=== PATIENT | female | born 1940 | race Caucasian/White ===

== ENCOUNTER → 2022-02-21 | Outpatient (REF) | payer MEDICARE, OTHER ==
[2022-02-21 17:16] LABS: ALT/SGPT 19 U/L (12-78); CHOLESTEROL LEVEL 185 MG/DL (<200); CHOLESTEROL RISK RATIO 3.854 (<5); HDL CHOLESTEROL 48 MG/DL (>40); NON-HDL-C 137 MG/DL; TRIGLYCERIDES LEVEL 436 MG/DL (<150)
== END ==
LOC: M LAB REF 15:04 → M SHH 15:04
PROVIDERS: ATTEND Nurse Practitioner Family
DX: I73.9 Peripheral vascular disease, unspecified (principal); I10 Essential (primary) hypertension; E78.5 Hyperlipidemia, unspecified

== ENCOUNTER → 2022-02-21 | Outpatient (REF) | payer MEDICARE, OTHER ==
[2022-02-21 16:18] LABS: BASO # 0.1 10^3/uL (0.0-0.2); BASO % 1.1 % (0.0-1.0); EOS # 0.2 10^3/uL (0.0-0.5); HEMATOCRIT 38.3 % (36.0-47.0); HEMOGLOBIN 11.7 g/dl (12.0-15.5); LYMPH # 1.5 10^3/uL (1.5-5.0); LYMPH % 15.3 % (24.0-44.0); MEAN CORPUSCULAR HEMOGLOBIN 27.9 pg (27.0-33.0); MEAN CORPUSCULAR HGB CONC 30.5 g/dl (32.0-36.5); MEAN CORPUSCULAR VOLUME 91.2 fl (80.0-96.0); MONO # 1.1 10^3/uL (0.0-0.8); MONO % 10.6 % (2.0-8.0); PLATELET COUNT, AUTOMATED 334 10^3/uL (150-450); WHITE BLOOD COUNT 9.9 10^3/uL (4.0-10.0)
[2022-02-21 17:12] LABS: BLOOD UREA NITROGEN 25 MG/DL (7-18); CALCIUM LEVEL 9.6 MG/DL (8.8-10.2); CARBON DIOXIDE LEVEL 27 MEQ/L (21-32); CHLORIDE LEVEL 103 MEQ/L (98-107); CREATININE FOR GFR 0.85 MG/DL (0.55-1.30); GLOMERULAR FILTRATION RATE > 60.0 (>39); GLUCOSE, FASTING 223 MG/DL (70-100); POTASSIUM SERUM 4.2 MEQ/L (3.5-5.1); SODIUM LEVEL 141 MEQ/L (136-145)
[2022-02-21 17:16] LABS: ALBUMIN 3.1 GM/DL (3.2-5.2); ALT/SGPT 20 U/L (12-78); BILIRUBIN,DIRECT 0.1 MG/DL (0.0-0.2); BILIRUBIN,TOTAL 0.2 MG/DL (0.2-1.0); C REACTIVE PROTEIN QUANTITATIV < 0.30 MG/DL (0.00-0.30); TOTAL PROTEIN 6.1 GM/DL (6.4-8.2)
== END ==
LOC: M SHH 15:12
DX: L08.9 Local infection of the skin and subcutaneous tissue, unspecified (principal)

== ENCOUNTER → 2022-02-28 | Outpatient (REF) | payer MEDICARE ==
[2022-02-28 16:01] LABS: BASO # 0.1 10^3/uL (0.0-0.2); BASO % 1.3 % (0.0-1.0); EOS # 0.3 10^3/uL (0.0-0.5); EOS % 2.4 % (0.0-3.0); HEMATOCRIT 38.7 % (36.0-47.0); HEMOGLOBIN 12.2 g/dl (12.0-15.5); LYMPH # 1.7 10^3/uL (1.5-5.0); LYMPH % 16.7 % (24.0-44.0); MEAN CORPUSCULAR HEMOGLOBIN 28.8 pg (27.0-33.0); MEAN CORPUSCULAR HGB CONC 31.5 g/dl (32.0-36.5); MEAN CORPUSCULAR VOLUME 91.3 fl (80.0-96.0); MONO # 1.2 10^3/uL (0.0-0.8); MONO % 11.2 % (2.0-8.0); NEUTROPHILS % 67.8 % (36.0-66.0); PLATELET COUNT, AUTOMATED 319 10^3/uL (150-450); RED BLOOD COUNT 4.24 10^6/uL (4.00-5.40); WHITE BLOOD COUNT 10.3 10^3/uL (4.0-10.0)
[2022-02-28 16:15] LABS: ALBUMIN 3.4 GM/DL (3.2-5.2); ALT/SGPT 16 U/L (12-78); BILIRUBIN,DIRECT < 0.1 MG/DL (0.0-0.2); BILIRUBIN,TOTAL < 0.1 MG/DL (0.2-1.0); BLOOD UREA NITROGEN 23 MG/DL (7-18); CALCIUM LEVEL 9.2 MG/DL (8.8-10.2); CARBON DIOXIDE LEVEL 31 MEQ/L (21-32); CHLORIDE LEVEL 104 MEQ/L (98-107); CREATININE FOR GFR 0.68 MG/DL (0.55-1.30); GLOMERULAR FILTRATION RATE > 60.0 (>39); GLUCOSE, FASTING 47 MG/DL (70-100); POTASSIUM SERUM 4.1 MEQ/L (3.5-5.1); SODIUM LEVEL 142 MEQ/L (136-145); TOTAL PROTEIN 6.4 GM/DL (6.4-8.2)
[2022-02-28 16:37] LABS: ERYTHROCYTE SEDIMENTATION RATE 6 mm/hr (0-30)
== END ==
LOC: M SHH 14:46
DX: L08.9 Local infection of the skin and subcutaneous tissue, unspecified (principal)

== ENCOUNTER → 2022-03-09 | Outpatient (REF) | payer MEDICARE ==
[2022-03-09 16:02] LABS: BASO # 0.1 10^3/uL (0.0-0.2); BASO % 0.7 % (0.0-1.0); EOS # 0.2 10^3/uL (0.0-0.5); EOS % 1.3 % (0.0-3.0); HEMATOCRIT 37.5 % (36.0-47.0); HEMOGLOBIN 11.7 g/dl (12.0-15.5); LYMPH # 0.7 10^3/uL (1.5-5.0); MEAN CORPUSCULAR HEMOGLOBIN 28.4 pg (27.0-33.0); MEAN CORPUSCULAR HGB CONC 31.2 g/dl (32.0-36.5); MONO % 13.3 % (2.0-8.0); NEUTROPHILS # 9.2 10^3/uL (1.5-8.5); NEUTROPHILS % 77.9 % (36.0-66.0); PLATELET COUNT, AUTOMATED 348 10^3/uL (150-450); RED BLOOD COUNT 4.12 10^6/uL (4.00-5.40); WHITE BLOOD COUNT 11.9 10^3/uL (4.0-10.0)
[2022-03-09 16:30] LABS: ALBUMIN 3.4 GM/DL (3.2-5.2); ALT/SGPT 15 U/L (12-78); BILIRUBIN,DIRECT < 0.1 MG/DL (0.0-0.2); BILIRUBIN,TOTAL 0.1 MG/DL (0.2-1.0); BLOOD UREA NITROGEN 42 MG/DL (7-18); CALCIUM LEVEL 9.9 MG/DL (8.8-10.2); CARBON DIOXIDE LEVEL 31 MEQ/L (21-32); CHLORIDE LEVEL 100 MEQ/L (98-107); CREATININE FOR GFR 0.76 MG/DL (0.55-1.30); GLOMERULAR FILTRATION RATE > 60.0 (>39); GLUCOSE, FASTING 152 MG/DL (70-100); POTASSIUM SERUM 4.3 MEQ/L (3.5-5.1); SODIUM LEVEL 139 MEQ/L (136-145); TOTAL PROTEIN 6.3 GM/DL (6.4-8.2)
[2022-03-09 17:33] LABS: ERYTHROCYTE SEDIMENTATION RATE 2 mm/hr (0-30)
[2022-03-09 19:32] LABS: MONO # 1.6 10^3/uL (0.0-0.8)
== END ==
LOC: M SHH 15:00
DX: L08.9 Local infection of the skin and subcutaneous tissue, unspecified (principal)

== ENCOUNTER → 2022-03-14 | Outpatient (REF) | payer MEDICARE ==
[2022-03-14 14:21] LABS: BASO % 0.1 % (0.0-1.0); EOS % 0.1 % (0.0-3.0); HEMATOCRIT 38.7 % (36.0-47.0); HEMOGLOBIN 11.9 g/dl (12.0-15.5); LYMPH # 0.5 10^3/uL (1.5-5.0); MEAN CORPUSCULAR HEMOGLOBIN 27.9 pg (27.0-33.0); MEAN CORPUSCULAR HGB CONC 30.7 g/dl (32.0-36.5); MEAN CORPUSCULAR VOLUME 90.8 fl (80.0-96.0); MONO # 0.9 10^3/uL (0.0-0.8); MONO % 5.6 % (2.0-8.0); NEUTROPHILS # 14.2 10^3/uL (1.5-8.5); NEUTROPHILS % 90.7 % (36.0-66.0); PLATELET COUNT, AUTOMATED 291 10^3/uL (150-450); RED BLOOD COUNT 4.26 10^6/uL (4.00-5.40); WHITE BLOOD COUNT 15.7 10^3/uL (4.0-10.0)
[2022-03-14 14:40] LABS: ERYTHROCYTE SEDIMENTATION RATE 1 mm/hr (0-30)
[2022-03-14 14:44] LABS: ALBUMIN 3.2 GM/DL (3.2-5.2); ALT/SGPT 21 U/L (12-78); BILIRUBIN,DIRECT < 0.1 MG/DL (0.0-0.2); BILIRUBIN,TOTAL 0.5 MG/DL (0.2-1.0); C REACTIVE PROTEIN QUANTITATIV 0.93 MG/DL (0.00-0.30); TOTAL PROTEIN 6.4 GM/DL (6.4-8.2)
== END ==
LOC: M SHH 14:05
DX: L08.9 Local infection of the skin and subcutaneous tissue, unspecified (principal)

== ENCOUNTER → 2022-03-14 | Outpatient (REF) | payer MEDICARE ==
[2022-03-14 14:40] LABS: ALBUMIN 3.2 GM/DL (3.2-5.2); BILIRUBIN,TOTAL 0.1 MG/DL (0.2-1.0); CALCIUM LEVEL 10.1 MG/DL (8.8-10.2); CHOLESTEROL RISK RATIO 2.296 (<5); CREATININE FOR GFR 0.97 MG/DL (0.55-1.30); POTASSIUM SERUM 4.4 MEQ/L (3.5-5.1); TOTAL PROTEIN 6.4 GM/DL (6.4-8.2)
[2022-03-15 00:50] LABS: HEMOGLOBIN A1c 7.8 %
== END ==
LOC: M SHH 13:53
PROVIDERS: ATTEND Family Medicine
DX: E78.2 Mixed hyperlipidemia (principal); I10 Essential (primary) hypertension; E11.65 Type 2 diabetes mellitus with hyperglycemia

== ENCOUNTER 2022-03-25 12:14 | Observation (INO) | payer MEDICARE ==
[~2022-03-25] VITALS: Ht 162.6 cm; Wt 62.1 kg
[2022-03-25] MEDS ORDERED: OMEG1CAP85 PO (12:53)
[2022-03-25] MEDS ORDERED: LISI5TAB11 PO (12:53)
[2022-03-25] MEDS ORDERED: CLOP75TA2 PO (12:53)
[2022-03-25] MEDS ORDERED: HUMA50IN4 SQ (12:53)
[2022-03-25] MEDS ORDERED: LEVA0.6322 (12:53)
[2022-03-25] MEDS ORDERED: IPRA0.00 INH (12:53)
[2022-03-25] MEDS ORDERED: REPA140I2 SQ (12:53)
[2022-03-25] MEDS ORDERED: dexameTHASONE 20MG/5ML VIAL (J1100 PER 1MG) IV ONE (12:55)
[2022-03-25] MEDS ORDERED: IPRATROPIUM 0.5MG/ALBUTEROL 2.5MG INH SOL UD 3ML (DUONEB) NEB ONE (12:55)
[2022-03-25] MEDS ORDERED: ALBUTEROL SULFATE 2.5 MG/0.5 ML INH NEB SOLN INH ONE (12:55)
[2022-03-25 14:11] LABS: VENOUS BASE EXCESS 2.2 (-2.0-2.0); VENOUS HCO3 27.6 MEQ/L (23.0-27.0); VENOUS O2 SATURATION 72.1 % (60.0-80.0); VENOUS PARTIAL PRESSURE CO2 45.2 mmHg (38.0-50.0); VENOUS PARTIAL PRESSURE O2 37.7 mmHg (30.0-50.0); VENOUS PH 7.403 UNITS (7.330-7.430); VENOUS STANDARD HCO3 25.8 MEQ/L; VENOUS TOTAL CO2 28.9 MEQ/L (24.0-28.0)
[2022-03-25 14:15] LABS: BASO # 0.1 10^3/uL (0.0-0.2); BASO % 0.4 % (0.0-1.0); EOS % 0.2 % (0.0-3.0); HEMATOCRIT 44.2 % (36.0-47.0); HEMOGLOBIN 14.3 g/dl (12.0-15.5); LYMPH # 0.7 10^3/uL (1.5-5.0); LYMPH % 3.5 % (24.0-44.0); MEAN CORPUSCULAR HEMOGLOBIN 28.8 pg (27.0-33.0); MEAN CORPUSCULAR HGB CONC 32.4 g/dl (32.0-36.5); MEAN CORPUSCULAR VOLUME 89.1 fl (80.0-96.0); MONO # 1.5 10^3/uL (0.0-0.8); MONO % 8.1 % (2.0-8.0); NEUTROPHILS # 16.1 10^3/uL (1.5-8.5); NEUTROPHILS % 86.3 % (36.0-66.0); PLATELET COUNT, AUTOMATED 295 10^3/uL (150-450); RED BLOOD COUNT 4.96 10^6/uL (4.00-5.40); WHITE BLOOD COUNT 18.7 10^3/uL (4.0-10.0)
[2022-03-25 14:26] LABS: CK-MB VALUE MASS 1.4 NG/ML (<3.6); MB/CK RELATIVE INDEX 0.51 (< OR =4)
[2022-03-25 15:06] LABS: ALBUMIN 3.2 GM/DL (3.2-5.2); BILIRUBIN,DIRECT 0.2 MG/DL (0.0-0.2); BILIRUBIN,TOTAL 0.3 MG/DL (0.2-1.0); CALCIUM LEVEL 9.4 MG/DL (8.8-10.2); CREATININE FOR GFR 1.02 MG/DL (0.55-1.30); GLOMERULAR FILTRATION RATE 55.7 (>39); POTASSIUM SERUM 4.2 MEQ/L (3.5-5.1); THYROID STIMULATING HORMONE 1.02 uIU/ML (0.358-3.740); TOTAL PROTEIN 6.6 GM/DL (6.4-8.2)
[2022-03-25] MEDS ORDERED: ISOVUE-370 76% 100ML VIAL As Ordered ONE (15:11)
[2022-03-25 16:28] LABS: INR 0.99; PROTHROMBIN TIME 13.5 SECONDS (12.7-14.5)
[2022-03-25] MEDS ORDERED: ENOXAPARIN 60MG/0.6ML SYRINGE (J1650 PER 10MG) SC SCH ×2 (16:40→18:20)
[2022-03-25] MEDS ORDERED: MOM 30ML SUSPENSION UDC PO PRN (16:40)
[2022-03-25] MEDS ORDERED: ACETAMINOPHEN TAB 650MG DOSE (2X325MG) PO PRN (16:40)
[2022-03-25] MEDS ORDERED: DEXTROSE 50% 50 ML SYRINGE IV PRN (16:40)
[2022-03-25] MEDS ORDERED: GLUCAGON INJ 1MG VIAL SC PRN (16:40)
[2022-03-25] MEDS ORDERED: GLUCOSE 4GM CHEW TABLET PO PRN (16:40)
[2022-03-25] MEDS ORDERED: APIXABAN 5 MG TAB (ELIQUIS) PO ONE (16:40)
[2022-03-25] MEDS: INSULIN LISPRO (NovoLOG) PER UNIT SC SCH ×2 (17:30→21:00)
[2022-03-25] MEDS ORDERED: ROPI0.5T3 PO (17:43)
[2022-03-25] MEDS ORDERED: LOPI600T PO (17:43)
[2022-03-25] MEDS ORDERED: PREG25CA2 PO (17:43)
[2022-03-25] MEDS ORDERED: MELA5CAP2 PO (17:43)
[2022-03-25] MEDS ORDERED: VITA200048 PO (17:43)
[2022-03-25] MEDS ORDERED: PRED10TA2 PO (17:43)
[2022-03-25] MEDS ORDERED: BACITAB PO (17:43)
[2022-03-25] MEDS ORDERED: TOUJ1.2I SQ (17:43)
[2022-03-25] MEDS ORDERED: TRAM50TA2 PO (17:43)
[2022-03-25] MEDS ORDERED: COLA100C5 PO (17:43)
[2022-03-25] MEDS ORDERED: LIDO1PAD TOP (17:43)
[2022-03-25] MEDS ORDERED: ACET650T15 PO (17:43)
[2022-03-25] MEDS ORDERED: OMEP40CA5 PO (17:43)
[2022-03-25] MEDS ORDERED: HOME MED LIST COMPLETE! XX SCH (17:45)
[2022-03-25] MEDS ORDERED: traMADol 50 MG TAB PO PRN (17:50)
[2022-03-25] MEDS ORDERED: REMDESIVIR 200 MG in NS 250 ML IV ONE (20:00)
[2022-03-25] MEDS: IPRATROPIUM 0.5MG/ALBUTEROL 2.5MG INH SOL UD 3ML (DUONEB) INH SCH (20:00)
[2022-03-25 21:00] VITALS: BP 99/63
[2022-03-25 22:00] VITALS: BP 100/62
[2022-03-25] MEDS ORDERED: SODIUM CHLORIDE 0.9% INJ 10 ML SYR IV ONE (22:00)
[2022-03-25] MEDS: PREGABALIN 25 MG CAP (LYRICA) PO SCH (22:06)
[2022-03-25] MEDS: DOXYCYCLINE HYCLATE 100MG TABLET PO SCH (22:07)
[2022-03-25] MEDS: rOPINIRole 0.25 MG TAB(REQUIP) PO SCH (22:08)
[2022-03-25 22:30] VITALS: BP 99/64
[2022-03-25 23:00] VITALS: BP 99/63
[2022-03-26] VITALS (11 sets, daily range): BP systolic 103–155; BP diastolic 57–73
[2022-03-26 05:29] LABS: HEMATOCRIT 40.2 % (36.0-47.0); HEMOGLOBIN 13.3 g/dl (12.0-15.5); MEAN CORPUSCULAR HGB CONC 33.1 g/dl (32.0-36.5); MEAN CORPUSCULAR VOLUME 87.8 fl (80.0-96.0); PLATELET COUNT, AUTOMATED 287 10^3/uL (150-450); RED BLOOD COUNT 4.58 10^6/uL (4.00-5.40); WHITE BLOOD COUNT 15.6 10^3/uL (4.0-10.0)
[2022-03-26 05:50] LABS: BLOOD UREA NITROGEN 35 MG/DL (7-18); CALCIUM LEVEL 9.4 MG/DL (8.8-10.2); CARBON DIOXIDE LEVEL 27 MEQ/L (21-32); CHLORIDE LEVEL 104 MEQ/L (98-107); CREATININE FOR GFR 0.95 MG/DL (0.55-1.30); GLOMERULAR FILTRATION RATE > 60.0 (>39); GLUCOSE, FASTING 163 MG/DL (70-100); MAGNESIUM LEVEL 1.9 MG/DL (1.8-2.4); PHOSPHORUS LEVEL 3.5 MG/DL (2.5-4.9); SODIUM LEVEL 140 MEQ/L (136-145)
[2022-03-26] MEDS ORDERED: ENOXAPARIN 60MG/0.6ML SYRINGE (J1650 PER 10MG) SC SCH (06:00)
[2022-03-26] MEDS: IPRATROPIUM 0.5MG/ALBUTEROL 2.5MG INH SOL UD 3ML (DUONEB) INH SCH ×4 (07:23→19:39)
[2022-03-26] MEDS: PANTOPRAZOLE 40MG TAB (PROTONIX) PO SCH (08:13)
[2022-03-26] MEDS: CLOPIDOGREL 75 MG TAB PO SCH (08:13)
[2022-03-26] MEDS: PREGABALIN 25 MG CAP (LYRICA) PO SCH ×2 (08:13→22:10)
[2022-03-26] MEDS: APIXABAN 5 MG TAB (ELIQUIS) PO SCH ×2 (08:13→22:09)
[2022-03-26] MEDS: lisinopriL 5 MG TAB PO SCH (08:14)
[2022-03-26] MEDS: DOXYCYCLINE HYCLATE 100MG TABLET PO SCH ×2 (08:14→22:09)
[2022-03-26] MEDS: INSULIN LISPRO (NovoLOG) PER UNIT SC SCH ×4 (08:14→22:12)
[2022-03-26] MEDS ORDERED: methylPREDNISolone 40MG 1ML VIAL IV SCH ×2 (09:00)
[2022-03-26] MEDS: LEVEMIR (INSULIN DETEMIR) 1 UNITS/0.01ML SC SCH (11:16)
[2022-03-26] MEDS: REMDESIVIR 100 MG in NS 250 ML IV SCH (17:23)
[2022-03-26] MEDS ORDERED: SODIUM CHLORIDE 0.9% INJ 10 ML SYR IV SCH (19:00)
[2022-03-26] MEDS: rOPINIRole 0.25 MG TAB(REQUIP) PO SCH (22:09)
[2022-03-27 04:00] VITALS: BP 135/63
[2022-03-27 05:35] LABS: HEMATOCRIT 39.8 % (36.0-47.0); HEMOGLOBIN 13.2 g/dl (12.0-15.5); MEAN CORPUSCULAR HEMOGLOBIN 28.8 pg (27.0-33.0); MEAN CORPUSCULAR HGB CONC 33.2 g/dl (32.0-36.5); MEAN CORPUSCULAR VOLUME 86.9 fl (80.0-96.0); PLATELET COUNT, AUTOMATED 265 10^3/uL (150-450); RED BLOOD COUNT 4.58 10^6/uL (4.00-5.40); WHITE BLOOD COUNT 12.8 10^3/uL (4.0-10.0)
[2022-03-27 06:06] LABS: BLOOD UREA NITROGEN 29 MG/DL (7-18); CALCIUM LEVEL 8.9 MG/DL (8.8-10.2); CARBON DIOXIDE LEVEL 29 MEQ/L (21-32); CHLORIDE LEVEL 106 MEQ/L (98-107); CREATININE FOR GFR 0.87 MG/DL (0.55-1.30); GLOMERULAR FILTRATION RATE > 60.0 (>39); GLUCOSE, FASTING 65 MG/DL (70-100); MAGNESIUM LEVEL 1.8 MG/DL (1.8-2.4); PHOSPHORUS LEVEL 1.9 MG/DL (2.5-4.9); POTASSIUM SERUM 3.5 MEQ/L (3.5-5.1); SODIUM LEVEL 140 MEQ/L (136-145)
[2022-03-27] MEDS: INSULIN LISPRO (NovoLOG) PER UNIT SC SCH ×2 (06:57→11:39)
[2022-03-27] MEDS: IPRATROPIUM 0.5MG/ALBUTEROL 2.5MG INH SOL UD 3ML (DUONEB) INH SCH ×3 (07:30→15:20)
[2022-03-27 08:09] VITALS: BP 125/59
[2022-03-27] MEDS: PANTOPRAZOLE 40MG TAB (PROTONIX) PO SCH (08:12)
[2022-03-27] MEDS: CLOPIDOGREL 75 MG TAB PO SCH (08:12)
[2022-03-27] MEDS: APIXABAN 5 MG TAB (ELIQUIS) PO SCH (08:12)
[2022-03-27 08:13] VITALS: BP 125/59
[2022-03-27] MEDS: DOXYCYCLINE HYCLATE 100MG TABLET PO SCH (08:13)
[2022-03-27] MEDS: PREGABALIN 25 MG CAP (LYRICA) PO SCH (08:13)
[2022-03-27] MEDS: lisinopriL 5 MG TAB PO SCH (08:13)
[2022-03-27] MEDS: LEVEMIR (INSULIN DETEMIR) 1 UNITS/0.01ML SC SCH (08:13)
[2022-03-27] MEDS ORDERED: methylPREDNISolone 40MG 1ML VIAL IV SCH (09:00)
[2022-03-27] MEDS ORDERED: POTASSIUM PHOSPHATE INJ 30 MMOL in D5W 500 ML IV ONE (10:00)
[2022-03-27] MEDS ORDERED: ELIQ5TAB PO (10:34)
[2022-03-27 11:36] VITALS: BP 109/57
[2022-03-27] MEDS: REMDESIVIR 100 MG in NS 250 ML IV SCH (12:18)
[2022-03-27] MEDS ORDERED: POTASSIUM CHLORIDE 10MEQ SR TABLET PO ONE (13:00)
[2022-03-27] MEDS ORDERED: K-PHOS ORIGINAL (POT.ACID PHOSPHATE) 500MG TAB PO ONE (14:00)
[2022-03-27] MEDS ORDERED: PRED10TA2 PO (15:05)
[2022-04-01] MEDS ORDERED: APIXABAN 5 MG TAB (ELIQUIS) PO SCH (21:00)
== END 2022-03-27 16:02 | disposition home health service (06) ==
LOC: M ED 12:14 → M ED INP 12:15 → M ICU 21:12
PROVIDERS: ADMIT Internal Medicine; ATTEND Internal Medicine
DX: I26.99 Other pulmonary embolism without acute cor pulmonale (principal); J67.0 Farmer's lung; U07.1 COVID-19; Z99.81 Dependence on supplemental oxygen; D72.829 Elevated white blood cell count, unspecified; E83.39 Other disorders of phosphorus metabolism; R06.02 Shortness of breath; H42 Glaucoma in diseases classified elsewhere; E11.39 Type 2 diabetes mellitus with other diabetic ophthalmic complication; I10 Essential (primary) hypertension; I73.9 Peripheral vascular disease, unspecified; Z95.820 Peripheral vascular angioplasty status with implants and grafts; K21.9 Gastro-esophageal reflux disease without esophagitis; G25.81 Restless legs syndrome; M19.90 Unspecified osteoarthritis, unspecified site; R53.1 Weakness; Z88.1 Allergy status to other antibiotic agents; Z88.0 Allergy status to penicillin; Z79.899 Other long term (current) drug therapy; Z79.02 Long term (current) use of antithrombotics/antiplatelets; Z79.4 Long term (current) use of insulin; Z79.52 Long term (current) use of systemic steroids
CPT/HCPCS: 36415; 70450; 71045; 71275; 80048; 80076; 82550; 82553; 82803; 83605; 83735; 83880; 84100; 84145; 84443; 84484; 85025; 85027; 85610; 85730; 87040; 87486; 87581; 87633; 87798; 93005; 93041; 93970; 94640; 94760; 96366; 96367; 96375; 96376; 97162; 99285; G0378; J0248; J1100; J1815; J2920; M0222; Q9967

== ENCOUNTER → 2022-04-11 | Outpatient (REF) | payer MEDICARE ==
[~2022-04-11] MED LIST: ACET650T15 PO; BACITAB PO; CLOP75TA2 PO; COLA100C5 PO; ELIQ5TAB PO; HUMA50IN4 SQ; IPRA0.00 INH; LEVA0.6322; LIDO1PAD TOP; LISI5TAB11 PO; LOPI600T PO; MELA5CAP2 PO; OMEG1CAP85 PO; OMEP40CA5 PO; PRED10TA2 PO; PREG25CA2 PO; REPA140I2 SQ; ROPI0.5T3 PO; TOUJ1.2I SQ; TRAM50TA2 PO; VITA200048 PO
[2022-04-11 15:02] LABS: APPEARANCE, URINE HAZY (CLEAR); BACTERIA, URINE AUTO NEGATIVE (NEGATIVE); BILIRUBIN, URINE AUTO NEGATIVE (NEGATIVE); BLOOD, URINE BLOOD NEGATIVE (NEGATIVE); COLOR, URINE YELLOW (YELLOW); GLUCOSE, URINE (UA) AUTO NEGATIVE (NEGATIVE); KETONE, URINE AUTO TRACE mg/dL (NEGATIVE); LEUKOCYTE ESTERASE, URINE AUTO NEGATIVE (NEGATIVE); NITRITE, URINE AUTO NEGATIVE (NEGATIVE); PROTEIN, URINE AUTO 1+ mg/dL (NEGATIVE); RBC, URINE AUTO 1 /HPF (0-3); SPECIFIC GRAVITY URINE AUTO 1.018 (1.002-1.035); SQUAMOUS EPITHELIAL CELL UR AU 0 /HPF (0-6); UROBILINOGEN, URINE AUTO 0.2 mg/dL (0.0-2.0); WBC, URINE AUTO 1 /HPF (0-3)
== END ==
LOC: M SHH 14:25
DX: R30.0 Dysuria (principal)

== ENCOUNTER → 2022-04-11 | Outpatient (REF) | payer MEDICARE ==
[~2022-04-11] MED LIST changes: +ESTR62CR PV; +LORA-243 PO
[2022-04-11 15:03] LABS: HEMATOCRIT 39.1 % (36.0-47.0); HEMOGLOBIN 12.1 g/dl (12.0-15.5); MEAN CORPUSCULAR HEMOGLOBIN 28.6 pg (27.0-33.0); MEAN CORPUSCULAR HGB CONC 30.9 g/dl (32.0-36.5); MEAN CORPUSCULAR VOLUME 92.4 fl (80.0-96.0); PLATELET COUNT, AUTOMATED 452 10^3/uL (150-450); RED BLOOD COUNT 4.23 10^6/uL (4.00-5.40); WHITE BLOOD COUNT 8.2 10^3/uL (4.0-10.0)
[2022-04-11 21:37] LABS: ALBUMIN 2.9 GM/DL (3.2-5.2); ALT/SGPT 23 U/L (12-78); BILIRUBIN,TOTAL 0.2 MG/DL (0.2-1.0); BLOOD UREA NITROGEN 43 MG/DL (7-18); CALCIUM LEVEL 10.1 MG/DL (8.8-10.2); CARBON DIOXIDE LEVEL 31 MEQ/L (21-32); CHLORIDE LEVEL 100 MEQ/L (98-107); CREATININE FOR GFR 0.87 MG/DL (0.55-1.30); GLOMERULAR FILTRATION RATE > 60.0 (>39); GLUCOSE, FASTING 55 MG/DL (70-100); MAGNESIUM LEVEL 2.3 MG/DL (1.8-2.4); NT-PRO BNP 328 PG/ML (<450); PHOSPHORUS LEVEL 3.6 MG/DL (2.5-4.9); POTASSIUM SERUM 4.3 MEQ/L (3.5-5.1); SODIUM LEVEL 140 MEQ/L (136-145); TOTAL PROTEIN 6.4 GM/DL (6.4-8.2)
== END ==
LOC: M SHH 14:20
PROVIDERS: ATTEND Family Medicine
DX: T38.0X5D Adverse effect of glucocorticoids and synthetic analogues, subsequent encounter (principal); U07.1 COVID-19; I26.99 Other pulmonary embolism without acute cor pulmonale; R30.0 Dysuria

== ENCOUNTER 2022-04-14 10:40 | Inpatient (IN) | payer MEDICARE ==
[~2022-04-14] VITALS: Ht 160 cm; Wt 63.6 kg
[2022-04-14] MEDS: LIDOCAINE 5% (LIDODERM) PATCH TOP SCH (09:00)
[2022-04-14] MEDS: lisinopriL 5 MG TAB PO SCH (09:00)
[~2022-04-14 10:40] MED LIST changes: -ESTR62CR PV; -LORA-243 PO
[2022-04-14 12:22] LABS: BASO # 0.1 10^3/uL (0.0-0.2); BASO % 0.7 % (0.0-1.0); EOS % 0.3 % (0.0-3.0); HEMATOCRIT 38.2 % (36.0-47.0); LYMPH # 1.5 10^3/uL (1.5-5.0); LYMPH % 14.2 % (24.0-44.0); MEAN CORPUSCULAR HEMOGLOBIN 28.5 pg (27.0-33.0); MEAN CORPUSCULAR HGB CONC 31.4 g/dl (32.0-36.5); MEAN CORPUSCULAR VOLUME 90.7 fl (80.0-96.0); MONO # 1.3 10^3/uL (0.0-0.8); MONO % 12.1 % (2.0-8.0); NEUTROPHILS # 7.4 10^3/uL (1.5-8.5); NEUTROPHILS % 71.4 % (36.0-66.0); PLATELET COUNT, AUTOMATED 467 10^3/uL (150-450); RED BLOOD COUNT 4.21 10^6/uL (4.00-5.40); WHITE BLOOD COUNT 10.4 10^3/uL (4.0-10.0)
[2022-04-14 12:55] LABS: ALBUMIN 2.6 GM/DL (3.2-5.2); ALT/SGPT 19 U/L (12-78); BILIRUBIN,DIRECT 0.1 MG/DL (0.0-0.2); BILIRUBIN,TOTAL 0.3 MG/DL (0.2-1.0); BLOOD UREA NITROGEN 37 MG/DL (7-18); C REACTIVE PROTEIN QUANTITATIV 9.29 MG/DL (0.00-0.30); CARBON DIOXIDE LEVEL 29 MEQ/L (21-32); CHLORIDE LEVEL 103 MEQ/L (98-107); CREATININE FOR GFR 0.92 MG/DL (0.55-1.30); GLOMERULAR FILTRATION RATE > 60.0 (>39); GLUCOSE, FASTING 44 MG/DL (70-100); POTASSIUM SERUM 3.8 MEQ/L (3.5-5.1); SODIUM LEVEL 140 MEQ/L (136-145); TOTAL PROTEIN 6.1 GM/DL (6.4-8.2)
[2022-04-14] MEDS ORDERED: DEXTROSE 50% 50 ML SYRINGE IV STA ×2 (13:27→14:37)
[2022-04-14] MEDS ORDERED: NS 1,000 ML IV ONE (13:30)
[2022-04-14 13:45] LABS: ERYTHROCYTE SEDIMENTATION RATE 95 mm/hr (0-30)
[2022-04-14] MEDS ORDERED: cefTRIAXone SOD 1 GM in D5W MINI-BAG PLUS 50 ML IV ONE (14:30)
[2022-04-14] MEDS ORDERED: GLUCAGON INJ 1MG VIAL SC PRN (14:40)
[2022-04-14] MEDS ORDERED: DEXTROSE 50% 50 ML SYRINGE IV PRN (14:40)
[2022-04-14] MEDS ORDERED: GLUCOSE 4GM CHEW TABLET PO PRN (14:40)
[2022-04-14] MEDS ORDERED: ESTR62CR PV (15:31)
[2022-04-14] MEDS ORDERED: ELIQ5TAB PO (15:31)
[2022-04-14] MEDS ORDERED: LORA-243 PO (15:31)
[2022-04-14] MEDS ORDERED: HOME MED LIST COMPLETE! XX SCH (15:35)
[2022-04-14] MEDS ORDERED: DOCUSATE SODIUM 100MG CAPSULE PO PRN (16:05)
[2022-04-14] MEDS ORDERED: IPRATROPIUM 0.5MG/ALBUTEROL 2.5MG INH SOL UD 3ML (DUONEB) INH PRN (16:05)
[2022-04-14] MEDS ORDERED: VANCOMYCIN HCL 750 MG, VIAL MATE ADAPTER 1 EACH in D5W 250 ML IV ONE (17:00)
[2022-04-14] MEDS ORDERED: VANCOMYCIN HCL 500 MG in D5W MINI-BAG PLUS 100 ML IV ONE (18:00)
[2022-04-14] MEDS: LACTOBACILLUS ACIDOPHILUS CAP (BACID) PO SCH (18:55)
[2022-04-14] MEDS: INSULIN LISPRO (NovoLOG) PER UNIT SC SCH ×2 (18:55→21:00)
[2022-04-14] MEDS: traMADol 50 MG TAB PO PRN (19:34)
[2022-04-14] MEDS: **NOTE PATIENT COMMENT** MISC XX SCH (21:00)
[2022-04-14] MEDS: ACETAMINOPHEN 650MG ER TAB (TYLENOL ARTHRITIS) PO PRN (21:40)
[2022-04-14 22:00] VITALS: BP 102/68
[2022-04-15 01:57] VITALS: BP 111/68
[2022-04-15] MEDS: cefTRIAXone SOD 2 GM in D5W MINI-BAG PLUS 50 ML IV SCH (04:34)
[2022-04-15 06:00] VITALS: BP 117/98
[2022-04-15 07:01] LABS: BASO # 0.1 10^3/uL (0.0-0.2); BASO % 0.7 % (0.0-1.0); EOS # 0.1 10^3/uL (0.0-0.5); EOS % 0.9 % (0.0-3.0); HEMATOCRIT 36.7 % (36.0-47.0); HEMOGLOBIN 11.3 g/dl (12.0-15.5); LYMPH # 0.9 10^3/uL (1.5-5.0); LYMPH % 11.7 % (24.0-44.0); MEAN CORPUSCULAR HEMOGLOBIN 28.8 pg (27.0-33.0); MEAN CORPUSCULAR HGB CONC 30.8 g/dl (32.0-36.5); MEAN CORPUSCULAR VOLUME 93.6 fl (80.0-96.0); MONO % 13.4 % (2.0-8.0); NEUTROPHILS # 5.4 10^3/uL (1.5-8.5); NEUTROPHILS % 71.8 % (36.0-66.0); PLATELET COUNT, AUTOMATED 448 10^3/uL (150-450); RED BLOOD COUNT 3.92 10^6/uL (4.00-5.40); WHITE BLOOD COUNT 7.5 10^3/uL (4.0-10.0)
[2022-04-15] MEDS: INSULIN LISPRO (NovoLOG) PER UNIT SC SCH ×4 (07:30→20:35)
[2022-04-15 07:37] LABS: BLOOD UREA NITROGEN 21 MG/DL (7-18); CARBON DIOXIDE LEVEL 32 MEQ/L (21-32); CHLORIDE LEVEL 105 MEQ/L (98-107); CREATININE FOR GFR 0.81 MG/DL (0.55-1.30); GLOMERULAR FILTRATION RATE > 60.0 (>39); GLUCOSE, FASTING 112 MG/DL (70-100); POTASSIUM SERUM 4.2 MEQ/L (3.5-5.1); SODIUM LEVEL 141 MEQ/L (136-145)
[2022-04-15] MEDS ORDERED: VANCOMYCIN HCL 750 MG, VIAL MATE ADAPTER 1 EACH in D5W 250 ML IV SCH (10:00)
[2022-04-15] MEDS: traMADol 50 MG TAB PO PRN (10:33)
[2022-04-15] MEDS: predniSONE 10 MG TAB PO SCH (10:50)
[2022-04-15] MEDS: LORATADINE 10 MG TAB PO SCH (10:50)
[2022-04-15] MEDS: LACTOBACILLUS ACIDOPHILUS CAP (BACID) PO SCH ×2 (10:50→17:35)
[2022-04-15] MEDS: LIDOCAINE 5% (LIDODERM) PATCH TOP SCH (10:51)
[2022-04-15] MEDS: OMEPRAZOLE 20MG CAP PO SCH (10:51)
[2022-04-15] MEDS ORDERED: VANCOMYCIN HCL 500 MG in D5W MINI-BAG PLUS 100 ML IV SCH (11:00)
[2022-04-15 11:03] VITALS: BP 130/90
[2022-04-15] MEDS: lisinopriL 5 MG TAB PO SCH (11:03)
[2022-04-15] MEDS: ACETAMINOPHEN 650MG ER TAB (TYLENOL ARTHRITIS) PO PRN ×2 (13:42→20:34)
[2022-04-15 14:00] VITALS: BP 90/59
[2022-04-15 15:48] VITALS: BP 104/54
[2022-04-15] MEDS ORDERED: VANCOMYCIN HCL 1,000 MG, VIAL MATE ADAPTER 1 EACH in NS 250 ML IV SCH (17:00)
[2022-04-15] MEDS ORDERED: D5W/0.9% SODIUM CHLORIDE 1,000 ML IV SCH (20:15)
[2022-04-15] MEDS: **NOTE PATIENT COMMENT** MISC XX SCH (20:35)
[2022-04-15 22:00] VITALS: BP 98/62
[2022-04-16] VITALS (10 sets, daily range): BP systolic 106–154; BP diastolic 66–96
[2022-04-16] MEDS: traMADol 50 MG TAB PO PRN ×2 (00:32→15:17)
[2022-04-16] MEDS: cefTRIAXone SOD 2 GM in D5W MINI-BAG PLUS 50 ML IV SCH (04:01)
[2022-04-16 05:55] LABS: BASO # 0.1 10^3/uL (0.0-0.2); BASO % 0.7 % (0.0-1.0); EOS % 0.4 % (0.0-3.0); HEMATOCRIT 32.8 % (36.0-47.0); HEMOGLOBIN 10.1 g/dl (12.0-15.5); LYMPH # 0.9 10^3/uL (1.5-5.0); LYMPH % 11.3 % (24.0-44.0); MEAN CORPUSCULAR HEMOGLOBIN 28.1 pg (27.0-33.0); MEAN CORPUSCULAR HGB CONC 30.8 g/dl (32.0-36.5); MEAN CORPUSCULAR VOLUME 91.1 fl (80.0-96.0); MONO # 0.8 10^3/uL (0.0-0.8); MONO % 10.8 % (2.0-8.0); NEUTROPHILS # 5.8 10^3/uL (1.5-8.5); NEUTROPHILS % 75.4 % (36.0-66.0); PLATELET COUNT, AUTOMATED 410 10^3/uL (150-450); WHITE BLOOD COUNT 7.7 10^3/uL (4.0-10.0)
[2022-04-16 06:24] LABS: BLOOD UREA NITROGEN 14 MG/DL (7-18); CARBON DIOXIDE LEVEL 26 MEQ/L (21-32); CHLORIDE LEVEL 105 MEQ/L (98-107); GLOMERULAR FILTRATION RATE > 60.0 (>39); GLUCOSE, FASTING 269 MG/DL (70-100); POTASSIUM SERUM 3.4 MEQ/L (3.5-5.1); SODIUM LEVEL 137 MEQ/L (136-145)
[2022-04-16] MEDS: INSULIN LISPRO (NovoLOG) PER UNIT SC SCH ×4 (07:30→21:00)
[2022-04-16] MEDS ORDERED: TOBRAMYCIN SULF 1.2GM VIAL As Ordered ONE (07:55)
[2022-04-16] MEDS ORDERED: GENTAMICIN SULF 80MG/2ML VIAL As Ordered ONE (07:56)
[2022-04-16] MEDS ORDERED: LIDOCAINE 2% MDV 20ML VIAL As Ordered ONE (07:57)
[2022-04-16] MEDS ORDERED: BUPIVACAINE HCL 0.5% 30ML VIAL As Ordered ONE (07:57)
[2022-04-16] MEDS: LACTOBACILLUS ACIDOPHILUS CAP (BACID) PO SCH ×2 (08:00→17:12)
[2022-04-16] MEDS: LORATADINE 10 MG TAB PO SCH (08:36)
[2022-04-16] MEDS: OMEPRAZOLE 20MG CAP PO SCH (08:37)
[2022-04-16] MEDS: LIDOCAINE 5% (LIDODERM) PATCH TOP SCH (08:37)
[2022-04-16] MEDS: lisinopriL 5 MG TAB PO SCH (08:37)
[2022-04-16] MEDS: predniSONE 10 MG TAB PO SCH (08:37)
[2022-04-16] MEDS ORDERED: fentaNYL 100 MCG/2 ML INJECTION As Ordered ONE (08:47)
[2022-04-16] MEDS ORDERED: LIDOCAINE 2% 100MG/5ML SDV (FOR ANES.) As Ordered ONE (08:47)
[2022-04-16] MEDS ORDERED: MIDAZOLAM INJ 2MG/2ML VIAL (J2250 PER 1MG) As Ordered ONE (08:47)
[2022-04-16] MEDS ORDERED: propofoL 200 MG/20 ML VIAL As Ordered ONE (08:47)
[2022-04-16] MEDS ORDERED: VANCOMYCIN 500MG/10ML VIAL As Ordered ONE (08:48)
[2022-04-16] MEDS ORDERED: oxyCODONE 5MG TAB PO PRN (10:15)
[2022-04-16] MEDS ORDERED: fentaNYL 100 MCG/2 ML INJECTION IV PRN (10:15)
[2022-04-16] MEDS ORDERED: LR 1,000 ML IV SCH (10:15)
[2022-04-16] MEDS ORDERED: INSULIN LISPRO (NovoLOG) PER UNIT SC PRN (10:15)
[2022-04-16] MEDS ORDERED: VANCOMYCIN HCL 500 MG in D5W MINI-BAG PLUS 100 ML IV SCH (14:00)
[2022-04-16] MEDS ORDERED: VANCOMYCIN HCL 750 MG, VIAL MATE ADAPTER 1 EACH in D5W 250 ML IV SCH (15:00)
[2022-04-16] MEDS: ACETAMINOPHEN 650MG ER TAB (TYLENOL ARTHRITIS) PO PRN (15:21)
[2022-04-16] MEDS ORDERED: NS 1,000 ML IV SCH (17:00)
[2022-04-16] MEDS: MORPHINE 2 MG/ML 1ML VIAL IV PRN ×2 (17:12→22:33)
[2022-04-16] MEDS: APIXABAN 5 MG TAB (ELIQUIS) PO SCH (17:12)
[2022-04-16] MEDS: NORCO, ANEXSIA 5/325MG TABLET (HYDROcodone/ACETAMINOPHEN) PO PRN (19:34)
[2022-04-16] MEDS: PREGABALIN 25 MG CAP (LYRICA) PO SCH (20:18)
[2022-04-16] MEDS: **NOTE PATIENT COMMENT** MISC XX SCH (20:19)
[2022-04-17] MEDS: NORCO, ANEXSIA 5/325MG TABLET (HYDROcodone/ACETAMINOPHEN) PO PRN ×5 (00:12→21:01)
[2022-04-17 02:00] VITALS: BP 123/77
[2022-04-17] MEDS: cefTRIAXone SOD 2 GM in D5W MINI-BAG PLUS 50 ML IV SCH (04:10)
[2022-04-17 06:00] VITALS: BP 138/88
[2022-04-17 06:02] LABS: BASO # 0.1 10^3/uL (0.0-0.2); BASO % 0.8 % (0.0-1.0); EOS # 0.1 10^3/uL (0.0-0.5); EOS % 0.9 % (0.0-3.0); HEMOGLOBIN 11.7 g/dl (12.0-15.5); LYMPH # 1.2 10^3/uL (1.5-5.0); LYMPH % 15.9 % (24.0-44.0); MEAN CORPUSCULAR HEMOGLOBIN 28.7 pg (27.0-33.0); MEAN CORPUSCULAR HGB CONC 30.8 g/dl (32.0-36.5); MEAN CORPUSCULAR VOLUME 93.4 fl (80.0-96.0); MONO % 13.5 % (2.0-8.0); NEUTROPHILS # 5.2 10^3/uL (1.5-8.5); NEUTROPHILS % 67.9 % (36.0-66.0); PLATELET COUNT, AUTOMATED 446 10^3/uL (150-450); RED BLOOD COUNT 4.07 10^6/uL (4.00-5.40); WHITE BLOOD COUNT 7.6 10^3/uL (4.0-10.0)
[2022-04-17 06:38] LABS: BLOOD UREA NITROGEN 6 MG/DL (7-18); CALCIUM LEVEL 8.3 MG/DL (8.8-10.2); CARBON DIOXIDE LEVEL 29 MEQ/L (21-32); CHLORIDE LEVEL 107 MEQ/L (98-107); CREATININE FOR GFR 0.72 MG/DL (0.55-1.30); GLOMERULAR FILTRATION RATE > 60.0 (>39); GLUCOSE, FASTING 114 MG/DL (70-100); POTASSIUM SERUM 3.3 MEQ/L (3.5-5.1); SODIUM LEVEL 140 MEQ/L (136-145)
[2022-04-17] MEDS ORDERED: POTASSIUM CHLORIDE 10MEQ SR TABLET PO ONE (07:20)
[2022-04-17] MEDS ORDERED: DOXYCYCLINE HYCLATE 100 MG in D5W MINI-BAG PLUS 100 ML IV SCH (07:20)
[2022-04-17] MEDS: LACTOBACILLUS ACIDOPHILUS CAP (BACID) PO SCH ×2 (08:18→17:52)
[2022-04-17] MEDS: INSULIN LISPRO (NovoLOG) PER UNIT SC SCH ×4 (08:18→20:17)
[2022-04-17] MEDS: predniSONE 10 MG TAB PO SCH (08:19)
[2022-04-17] MEDS: APIXABAN 5 MG TAB (ELIQUIS) PO SCH ×2 (08:19→20:59)
[2022-04-17] MEDS: LORATADINE 10 MG TAB PO SCH (08:19)
[2022-04-17] MEDS: OMEPRAZOLE 20MG CAP PO SCH (08:19)
[2022-04-17] MEDS: LIDOCAINE 5% (LIDODERM) PATCH TOP SCH (08:20)
[2022-04-17] MEDS: PREGABALIN 25 MG CAP (LYRICA) PO SCH ×2 (08:20→20:59)
[2022-04-17] MEDS ORDERED: MORPHINE 2 MG/ML 1ML VIAL IV ONE (09:15)
[2022-04-17] MEDS: DOXYCYCLINE HYCLATE 100MG TABLET PO SCH ×2 (09:33→20:59)
[2022-04-17] MEDS: BACTRIM 160MG/800MG DS TAB PO SCH ×2 (09:33→20:59)
[2022-04-17 14:00] VITALS: BP 134/90
[2022-04-17] MEDS: ACETAMINOPHEN 650MG ER TAB (TYLENOL ARTHRITIS) PO PRN (14:57)
[2022-04-17] MEDS: **NOTE PATIENT COMMENT** MISC XX SCH (20:54)
[2022-04-17 22:00] VITALS: BP 114/77
[2022-04-18] MEDS: NORCO, ANEXSIA 5/325MG TABLET (HYDROcodone/ACETAMINOPHEN) PO PRN ×5 (01:06→20:35)
[2022-04-18 06:00] VITALS: BP 133/82
[2022-04-18 06:00] LABS: BASO # 0.1 10^3/uL (0.0-0.2); BASO % 0.5 % (0.0-1.0); EOS # 0.1 10^3/uL (0.0-0.5); EOS % 0.5 % (0.0-3.0); HEMATOCRIT 36.7 % (36.0-47.0); HEMOGLOBIN 11.5 g/dl (12.0-15.5); LYMPH # 1.3 10^3/uL (1.5-5.0); LYMPH % 14.2 % (24.0-44.0); MEAN CORPUSCULAR HEMOGLOBIN 28.8 pg (27.0-33.0); MEAN CORPUSCULAR HGB CONC 31.3 g/dl (32.0-36.5); MONO # 1.1 10^3/uL (0.0-0.8); MONO % 11.7 % (2.0-8.0); NEUTROPHILS # 6.8 10^3/uL (1.5-8.5); NEUTROPHILS % 72.4 % (36.0-66.0); PLATELET COUNT, AUTOMATED 438 10^3/uL (150-450); RED BLOOD COUNT 3.99 10^6/uL (4.00-5.40); WHITE BLOOD COUNT 9.3 10^3/uL (4.0-10.0)
[2022-04-18 06:38] LABS: BLOOD UREA NITROGEN 11 MG/DL (7-18); CALCIUM LEVEL 8.7 MG/DL (8.8-10.2); CARBON DIOXIDE LEVEL 26 MEQ/L (21-32); CHLORIDE LEVEL 106 MEQ/L (98-107); CREATININE FOR GFR 0.73 MG/DL (0.55-1.30); GLOMERULAR FILTRATION RATE > 60.0 (>39); GLUCOSE, FASTING 126 MG/DL (70-100); SODIUM LEVEL 138 MEQ/L (136-145)
[2022-04-18 07:30] VITALS: BP 121/83
[2022-04-18] MEDS: INSULIN LISPRO (NovoLOG) PER UNIT SC SCH ×4 (08:08→20:36)
[2022-04-18] MEDS: BACTRIM 160MG/800MG DS TAB PO SCH ×2 (09:20→20:34)
[2022-04-18] MEDS: LACTOBACILLUS ACIDOPHILUS CAP (BACID) PO SCH ×2 (09:20→17:57)
[2022-04-18] MEDS: PREGABALIN 25 MG CAP (LYRICA) PO SCH ×4 (09:22→20:33)
[2022-04-18] MEDS: LORATADINE 10 MG TAB PO SCH (09:23)
[2022-04-18] MEDS: predniSONE 10 MG TAB PO SCH (09:23)
[2022-04-18] MEDS: APIXABAN 5 MG TAB (ELIQUIS) PO SCH ×2 (09:24→20:34)
[2022-04-18] MEDS: OMEPRAZOLE 20MG CAP PO SCH (09:24)
[2022-04-18] MEDS: DOXYCYCLINE HYCLATE 100MG TABLET PO SCH ×2 (09:25→20:34)
[2022-04-18] MEDS: LIDOCAINE 5% (LIDODERM) PATCH TOP SCH (09:27)
[2022-04-18] MEDS ORDERED: NORCO, ANEXSIA 5/325MG TABLET (HYDROcodone/ACETAMINOPHEN) PO ONE (12:00)
[2022-04-18 14:00] VITALS: BP 126/74
[2022-04-18 20:13] VITALS: BP 121/72
[2022-04-18] MEDS: **NOTE PATIENT COMMENT** MISC XX SCH (20:36)
[2022-04-19] MEDS: NORCO, ANEXSIA 5/325MG TABLET (HYDROcodone/ACETAMINOPHEN) PO PRN ×3 (01:38→14:20)
[2022-04-19 06:22] LABS: BASO # 0.1 10^3/uL (0.0-0.2); BASO % 0.7 % (0.0-1.0); EOS # 0.1 10^3/uL (0.0-0.5); EOS % 0.8 % (0.0-3.0); HEMATOCRIT 33.3 % (36.0-47.0); HEMOGLOBIN 10.6 g/dl (12.0-15.5); LYMPH # 1.4 10^3/uL (1.5-5.0); LYMPH % 13.7 % (24.0-44.0); MEAN CORPUSCULAR HEMOGLOBIN 28.6 pg (27.0-33.0); MEAN CORPUSCULAR HGB CONC 31.8 g/dl (32.0-36.5); MONO % 10.1 % (2.0-8.0); NEUTROPHILS # 7.4 10^3/uL (1.5-8.5); NEUTROPHILS % 73.7 % (36.0-66.0); PLATELET COUNT, AUTOMATED 463 10^3/uL (150-450)
[2022-04-19 06:36] VITALS: BP 115/75
[2022-04-19 07:05] LABS: BLOOD UREA NITROGEN 13 MG/DL (7-18); CALCIUM LEVEL 8.6 MG/DL (8.8-10.2); CARBON DIOXIDE LEVEL 27 MEQ/L (21-32); CHLORIDE LEVEL 108 MEQ/L (98-107); CREATININE FOR GFR 0.71 MG/DL (0.55-1.30); GLOMERULAR FILTRATION RATE > 60.0 (>39); GLUCOSE, FASTING 135 MG/DL (70-100); POTASSIUM SERUM 3.9 MEQ/L (3.5-5.1); SODIUM LEVEL 141 MEQ/L (136-145)
[2022-04-19] MEDS: OMEPRAZOLE 20MG CAP PO SCH (08:32)
[2022-04-19] MEDS: predniSONE 10 MG TAB PO SCH (08:32)
[2022-04-19] MEDS: BACTRIM 160MG/800MG DS TAB PO SCH (08:32)
[2022-04-19] MEDS: LORATADINE 10 MG TAB PO SCH (08:32)
[2022-04-19] MEDS: LACTOBACILLUS ACIDOPHILUS CAP (BACID) PO SCH (08:32)
[2022-04-19] MEDS: DOXYCYCLINE HYCLATE 100MG TABLET PO SCH (08:33)
[2022-04-19] MEDS: APIXABAN 5 MG TAB (ELIQUIS) PO SCH (08:33)
[2022-04-19] MEDS: PREGABALIN 25 MG CAP (LYRICA) PO SCH (08:33)
[2022-04-19] MEDS: LIDOCAINE 5% (LIDODERM) PATCH TOP SCH (08:34)
[2022-04-19] MEDS: INSULIN LISPRO (NovoLOG) PER UNIT SC SCH ×2 (08:34→12:29)
[2022-04-19] MEDS ORDERED: NORCO, ANEXSIA 5/325MG TABLET (HYDROcodone/ACETAMINOPHEN) PO ONE (09:05)
[2022-04-19] MEDS ORDERED: HYDR-3715 PO ×2 (11:58→12:02)
[2022-04-19] MEDS ORDERED: SENO8.6T10 PO (11:58)
[2022-04-19] MEDS ORDERED: RISATAB3 PO (11:58)
[2022-04-19] MEDS ORDERED: DOXY100T PO (11:58)
[2022-04-19] MEDS ORDERED: BACTDSTA PO (11:58)
[2022-04-19] MEDS ORDERED: HYDR-3713 PO (16:17)
== END 2022-04-19 14:25 | disposition home health service (06) | DRG 617 ==
LOC: M ED 10:40 → M ED INP 14:15 → M MS5PR 16:30
PROVIDERS: ADMIT General Practice; ATTEND General Practice
PROC: 0Y6P0Z0 Detachment at Right 1st Toe, Complete, Open Approach (ICD-10-PCS; principal; 2022-04-16 08:30)
DX: E11.69 Type 2 diabetes mellitus with other specified complication (principal); M86.9 Osteomyelitis, unspecified; G93.40 Encephalopathy, unspecified; E11.621 Type 2 diabetes mellitus with foot ulcer; Z86.711 Personal history of pulmonary embolism; Z79.01 Long term (current) use of anticoagulants; I73.9 Peripheral vascular disease, unspecified; Z79.4 Long term (current) use of insulin; Z79.52 Long term (current) use of systemic steroids; Z79.899 Other long term (current) drug therapy; Z88.0 Allergy status to penicillin; Z88.1 Allergy status to other antibiotic agents; I10 Essential (primary) hypertension; M19.90 Unspecified osteoarthritis, unspecified site; E11.51 Type 2 diabetes mellitus with diabetic peripheral angiopathy without gangrene; K21.9 Gastro-esophageal reflux disease without esophagitis; G25.81 Restless legs syndrome; Z95.828 Presence of other vascular implants and grafts; Z66 Do not resuscitate; R26.89 Other abnormalities of gait and mobility; E87.6 Hypokalemia; E83.51 Hypocalcemia; J67.0 Farmer's lung; B95.8 Unspecified staphylococcus as the cause of diseases classified elsewhere; Z20.822 Contact with and (suspected) exposure to COVID-19; L97.519 Non-pressure chronic ulcer of other part of right foot with unspecified severity

== ENCOUNTER 2022-05-19 18:05 | Inpatient (IN) | payer MEDICARE ==
[~2022-05-19] VITALS: Ht 162.6 cm; Wt 70.1 kg
[~2022-05-19 18:05] MED LIST changes: +BACTDSTA PO; +DOXY100T PO; +ESTR62CR PV; +HYDR-3713 PO; +HYDR-3715 PO; +LORA-243 PO; +RISATAB3 PO; +SENO8.6T10 PO
[2022-05-19] MEDS ORDERED: SODIGEL TOP (21:23)
[2022-05-19] MEDS ORDERED: HOME MED LIST COMPLETE! XX SCH (21:25)
[2022-05-19 22:01] LABS: BASO # 0.1 10^3/uL (0.0-0.2); BASO % 0.6 % (0.0-1.0); EOS # 0.3 10^3/uL (0.0-0.5); EOS % 1.7 % (0.0-3.0); HEMOGLOBIN 12.1 g/dl (12.0-15.5); LYMPH # 1.3 10^3/uL (1.5-5.0); LYMPH % 8.6 % (24.0-44.0); MEAN CORPUSCULAR HEMOGLOBIN 28.5 pg (27.0-33.0); MEAN CORPUSCULAR HGB CONC 31.8 g/dl (32.0-36.5); MEAN CORPUSCULAR VOLUME 89.6 fl (80.0-96.0); MONO # 1.2 10^3/uL (0.0-0.8); MONO % 7.7 % (2.0-8.0); NEUTROPHILS # 12.3 10^3/uL (1.5-8.5); NEUTROPHILS % 80.8 % (36.0-66.0); PLATELET COUNT, AUTOMATED 364 10^3/uL (150-450); RED BLOOD COUNT 4.24 10^6/uL (4.00-5.40); WHITE BLOOD COUNT 15.2 10^3/uL (4.0-10.0)
[2022-05-19 22:11] LABS: C REACTIVE PROTEIN QUANTITATIV 1.08 MG/DL (0.00-0.30); CALCIUM LEVEL 9.4 MG/DL (8.8-10.2); CREATININE FOR GFR 1.02 MG/DL (0.55-1.30); GLOMERULAR FILTRATION RATE 55.7 (>39); POTASSIUM SERUM 3.8 MEQ/L (3.5-5.1)
[2022-05-19 22:16] LABS: RSV AMPLIFICATION NEGATIVE (NEGATIVE)
[2022-05-19 22:25] LABS: ERYTHROCYTE SEDIMENTATION RATE 43 mm/hr (0-30)
[2022-05-19] MEDS ORDERED: VANCOMYCIN HCL 1,250 MG in IV FLUID PLACE HOLDER 1 EA IV ONE (22:35)
[2022-05-19] MEDS ORDERED: VANCOMYCIN HCL 750 MG, VIAL MATE ADAPTER 1 EACH in D5W 250 ML IV ONE (23:00)
[2022-05-20] MEDS ORDERED: VANCOMYCIN HCL 500 MG in D5W MINI-BAG PLUS 100 ML IV ONE ×2
[2022-05-20 02:10] VITALS: BP 99/56
[2022-05-20] MEDS ORDERED: DOCUSATE SODIUM 100MG CAPSULE PO PRN (02:10)
[2022-05-20] MEDS ORDERED: LIDOCAINE 5% (LIDODERM) PATCH TOP PRN (02:10)
[2022-05-20] MEDS ORDERED: ACETAMINOPHEN 650MG ER TAB (TYLENOL ARTHRITIS) PO PRN (02:10)
[2022-05-20] MEDS ORDERED: DEXTROSE 50% 50 ML SYRINGE IV PRN (02:15)
[2022-05-20] MEDS ORDERED: GLUCOSE 4GM CHEW TABLET PO PRN (02:15)
[2022-05-20] MEDS ORDERED: GLUCAGON INJ 1MG VIAL SC PRN (02:15)
[2022-05-20] MEDS: DOXYCYCLINE HYCLATE 100 MG in D5W MINI-BAG PLUS 100 ML IV SCH ×2 (02:33→14:28)
[2022-05-20] MEDS: rOPINIRole 0.25 MG TAB(REQUIP) PO SCH ×2 (02:35→21:06)
[2022-05-20] MEDS ORDERED: HOME MED LIST COMPLETE! XX SCH (02:35)
[2022-05-20 06:00] VITALS: BP 103/59
[2022-05-20] MEDS: IPRATROPIUM 0.5MG/ALBUTEROL 2.5MG INH SOL UD 3ML (DUONEB) INH SCH ×4 (07:08→20:29)
[2022-05-20] MEDS: INSULIN LISPRO (NovoLOG) PER UNIT SC SCH ×4 (07:30→20:53)
[2022-05-20] MEDS ORDERED: lisinopriL 5 MG TAB PO SCH (09:00)
[2022-05-20] MEDS ORDERED: APIXABAN 5 MG TAB (ELIQUIS) PO SCH (09:00)
[2022-05-20] MEDS ORDERED: ESTROGENS VAGINAL CREAM 30GM PV SCH (09:00)
[2022-05-20] MEDS ORDERED: CLOPIDOGREL 75 MG TAB PO SCH (09:00)
[2022-05-20] MEDS: OMEPRAZOLE 20MG CAP PO SCH (09:09)
[2022-05-20] MEDS: predniSONE 10 MG TAB PO SCH (09:10)
[2022-05-20] MEDS: LACTOBACILLUS ACIDOPHILUS CAP (BACID) PO SCH (09:10)
[2022-05-20] MEDS: traMADol 50 MG TAB PO PRN (09:10)
[2022-05-20] MEDS: LORATADINE 10 MG TAB PO SCH (09:10)
[2022-05-20] MEDS: PREGABALIN 25 MG CAP (LYRICA) PO SCH ×2 (09:16→21:06)
[2022-05-20 09:22] LABS: BASO # 0.1 10^3/uL (0.0-0.2); BASO % 0.8 % (0.0-1.0); EOS # 0.7 10^3/uL (0.0-0.5); HEMATOCRIT 39.4 % (36.0-47.0); HEMOGLOBIN 12.6 g/dl (12.0-15.5); LYMPH # 1.6 10^3/uL (1.5-5.0); LYMPH % 13.4 % (24.0-44.0); MEAN CORPUSCULAR HEMOGLOBIN 28.6 pg (27.0-33.0); MEAN CORPUSCULAR VOLUME 89.5 fl (80.0-96.0); MONO # 1.3 10^3/uL (0.0-0.8); MONO % 10.8 % (2.0-8.0); NEUTROPHILS # 8.1 10^3/uL (1.5-8.5); NEUTROPHILS % 68.1 % (36.0-66.0); PLATELET COUNT, AUTOMATED 337 10^3/uL (150-450); WHITE BLOOD COUNT 11.9 10^3/uL (4.0-10.0)
[2022-05-20 09:43] LABS: BLOOD UREA NITROGEN 19 MG/DL (7-18); CARBON DIOXIDE LEVEL 29 MEQ/L (21-32); CHLORIDE LEVEL 104 MEQ/L (98-107); CREATININE FOR GFR 0.82 MG/DL (0.55-1.30); GLOMERULAR FILTRATION RATE > 60.0 (>39); GLUCOSE, FASTING 124 MG/DL (70-100); POTASSIUM SERUM 3.7 MEQ/L (3.5-5.1); SODIUM LEVEL 141 MEQ/L (136-145)
[2022-05-20] MEDS: SODIUM CHLORIDE 0.9% NASAL GEL 15GM (AYR) SCH (10:59)
[2022-05-20] MEDS: APIXABAN 5 MG TAB (ELIQUIS) PO SCH ×2 (12:12→21:06)
[2022-05-20] MEDS: CLOPIDOGREL 75 MG TAB PO SCH (12:12)
[2022-05-20 14:00] VITALS: BP 122/69
[2022-05-20] MEDS: VANCOMYCIN HCL 1,000 MG, VIAL MATE ADAPTER 1 EACH in D5W 250 ML IV SCH (16:38)
[2022-05-20 20:00] VITALS: BP 106/64
[2022-05-20] MEDS: **NOTE PATIENT COMMENT** MISC XX SCH (21:00)
[2022-05-20] MEDS: ESTROGENS VAGINAL CREAM 30GM PV SCH (21:06)
[2022-05-21] MEDS: DOXYCYCLINE HYCLATE 100 MG in D5W MINI-BAG PLUS 100 ML IV SCH (02:18)
[2022-05-21 06:00] VITALS: BP 131/64
[2022-05-21 06:58] LABS: HEMATOCRIT 38.2 % (36.0-47.0); HEMOGLOBIN 11.9 g/dl (12.0-15.5); MEAN CORPUSCULAR HEMOGLOBIN 27.9 pg (27.0-33.0); MEAN CORPUSCULAR HGB CONC 31.2 g/dl (32.0-36.5); MEAN CORPUSCULAR VOLUME 89.7 fl (80.0-96.0); PLATELET COUNT, AUTOMATED 344 10^3/uL (150-450); RED BLOOD COUNT 4.26 10^6/uL (4.00-5.40); WHITE BLOOD COUNT 9.9 10^3/uL (4.0-10.0)
[2022-05-21] MEDS: IPRATROPIUM 0.5MG/ALBUTEROL 2.5MG INH SOL UD 3ML (DUONEB) INH SCH ×4 (07:34→20:23)
[2022-05-21 08:01] LABS: BLOOD UREA NITROGEN 21 MG/DL (7-18); CALCIUM LEVEL 9.3 MG/DL (8.8-10.2); CARBON DIOXIDE LEVEL 28 MEQ/L (21-32); CHLORIDE LEVEL 104 MEQ/L (98-107); GLOMERULAR FILTRATION RATE > 60.0 (>39); GLUCOSE, FASTING 202 MG/DL (70-100); POTASSIUM SERUM 3.8 MEQ/L (3.5-5.1); SODIUM LEVEL 138 MEQ/L (136-145)
[2022-05-21] MEDS ORDERED: LEVEMIR (INSULIN DETEMIR) 1 UNITS/0.01ML SC ONE (08:30)
[2022-05-21] MEDS: traMADol 50 MG TAB PO PRN (08:39)
[2022-05-21] MEDS ORDERED: traMADol 50 MG TAB PO ONE (08:40)
[2022-05-21] MEDS: INSULIN LISPRO (NovoLOG) PER UNIT SC SCH ×4 (08:49→21:00)
[2022-05-21] MEDS: LACTOBACILLUS ACIDOPHILUS CAP (BACID) PO SCH (08:53)
[2022-05-21] MEDS: LORATADINE 10 MG TAB PO SCH (08:54)
[2022-05-21] MEDS: CLOPIDOGREL 75 MG TAB PO SCH (08:54)
[2022-05-21] MEDS: OMEPRAZOLE 20MG CAP PO SCH (08:54)
[2022-05-21] MEDS: predniSONE 10 MG TAB PO SCH (08:55)
[2022-05-21] MEDS: APIXABAN 5 MG TAB (ELIQUIS) PO SCH ×2 (08:56→21:26)
[2022-05-21] MEDS: PREGABALIN 25 MG CAP (LYRICA) PO SCH ×2 (08:58→21:27)
[2022-05-21] MEDS: SODIUM CHLORIDE 0.9% NASAL GEL 15GM (AYR) SCH (09:03)
[2022-05-21] MEDS: VANCOMYCIN HCL 1,000 MG, VIAL MATE ADAPTER 1 EACH in D5W 250 ML IV SCH (10:43)
[2022-05-21 14:00] VITALS: BP 122/62
[2022-05-21 20:00] VITALS: BP 140/71
[2022-05-21] MEDS: **NOTE PATIENT COMMENT** MISC XX SCH (21:00)
[2022-05-21] MEDS: ESTROGENS VAGINAL CREAM 30GM PV SCH (21:27)
[2022-05-21] MEDS: rOPINIRole 0.25 MG TAB(REQUIP) PO SCH (21:27)
[2022-05-22] MEDS: VANCOMYCIN HCL 1,000 MG, VIAL MATE ADAPTER 1 EACH in D5W 250 ML IV SCH ×2 (05:05→21:46)
[2022-05-22 06:00] VITALS: BP 120/60
[2022-05-22] MEDS: IPRATROPIUM 0.5MG/ALBUTEROL 2.5MG INH SOL UD 3ML (DUONEB) INH SCH ×4 (07:12→21:48)
[2022-05-22] MEDS: INSULIN LISPRO (NovoLOG) PER UNIT SC SCH ×4 (08:44→21:45)
[2022-05-22] MEDS: APIXABAN 5 MG TAB (ELIQUIS) PO SCH ×2 (08:44→21:44)
[2022-05-22] MEDS: CLOPIDOGREL 75 MG TAB PO SCH (08:45)
[2022-05-22] MEDS: predniSONE 10 MG TAB PO SCH (08:45)
[2022-05-22] MEDS: LACTOBACILLUS ACIDOPHILUS CAP (BACID) PO SCH (08:45)
[2022-05-22] MEDS: OMEPRAZOLE 20MG CAP PO SCH (08:45)
[2022-05-22] MEDS: PREGABALIN 25 MG CAP (LYRICA) PO SCH ×2 (08:45→21:44)
[2022-05-22] MEDS: traMADol 50 MG TAB PO PRN (08:47)
[2022-05-22] MEDS: LORATADINE 10 MG TAB PO SCH (08:47)
[2022-05-22 08:51] LABS: BASO # 0.1 10^3/uL (0.0-0.2); BASO % 1.3 % (0.0-1.0); EOS # 0.6 10^3/uL (0.0-0.5); EOS % 6.8 % (0.0-3.0); HEMATOCRIT 40.9 % (36.0-47.0); HEMOGLOBIN 12.9 g/dl (12.0-15.5); LYMPH # 1.4 10^3/uL (1.5-5.0); LYMPH % 15.8 % (24.0-44.0); MEAN CORPUSCULAR HEMOGLOBIN 28.4 pg (27.0-33.0); MEAN CORPUSCULAR HGB CONC 31.5 g/dl (32.0-36.5); MEAN CORPUSCULAR VOLUME 89.9 fl (80.0-96.0); MONO # 1.1 10^3/uL (0.0-0.8); MONO % 11.7 % (2.0-8.0); NEUTROPHILS # 5.7 10^3/uL (1.5-8.5); NEUTROPHILS % 63.4 % (36.0-66.0); PLATELET COUNT, AUTOMATED 365 10^3/uL (150-450); RED BLOOD COUNT 4.55 10^6/uL (4.00-5.40); WHITE BLOOD COUNT 9.1 10^3/uL (4.0-10.0)
[2022-05-22 09:24] LABS: BLOOD UREA NITROGEN 18 MG/DL (7-18); C REACTIVE PROTEIN QUANTITATIV 0.56 MG/DL (0.00-0.30); CALCIUM LEVEL 9.4 MG/DL (8.8-10.2); CARBON DIOXIDE LEVEL 27 MEQ/L (21-32); CHLORIDE LEVEL 102 MEQ/L (98-107); CREATININE FOR GFR 0.84 MG/DL (0.55-1.30); GLOMERULAR FILTRATION RATE > 60.0 (>39); GLUCOSE, FASTING 171 MG/DL (70-100); POTASSIUM SERUM 3.5 MEQ/L (3.5-5.1); SODIUM LEVEL 136 MEQ/L (136-145)
[2022-05-22 09:29] LABS: ERYTHROCYTE SEDIMENTATION RATE 43 mm/hr (0-30)
[2022-05-22] MEDS: SODIUM CHLORIDE 0.9% NASAL GEL 15GM (AYR) SCH (10:10)
[2022-05-22 13:54] VITALS: BP 110/62
[2022-05-22] MEDS ORDERED: DOXY-350 PO (18:53)
[2022-05-22 20:41] VITALS: BP 143/91
[2022-05-22] MEDS: **NOTE PATIENT COMMENT** MISC XX SCH (21:00)
[2022-05-22] MEDS: rOPINIRole 0.25 MG TAB(REQUIP) PO SCH (21:44)
[2022-05-22] MEDS: ESTROGENS VAGINAL CREAM 30GM PV SCH (21:46)
[2022-05-23 06:00] VITALS: BP 129/78
[2022-05-23 06:50] LABS: BASO # 0.1 10^3/uL (0.0-0.2); EOS # 0.5 10^3/uL (0.0-0.5); EOS % 5.8 % (0.0-3.0); HEMATOCRIT 36.5 % (36.0-47.0); HEMOGLOBIN 11.7 g/dl (12.0-15.5); LYMPH # 1.6 10^3/uL (1.5-5.0); LYMPH % 16.9 % (24.0-44.0); MEAN CORPUSCULAR HEMOGLOBIN 28.7 pg (27.0-33.0); MEAN CORPUSCULAR HGB CONC 32.1 g/dl (32.0-36.5); MEAN CORPUSCULAR VOLUME 89.7 fl (80.0-96.0); MONO # 1.1 10^3/uL (0.0-0.8); MONO % 11.9 % (2.0-8.0); NEUTROPHILS % 63.5 % (36.0-66.0); PLATELET COUNT, AUTOMATED 365 10^3/uL (150-450); RED BLOOD COUNT 4.07 10^6/uL (4.00-5.40); WHITE BLOOD COUNT 9.4 10^3/uL (4.0-10.0)
[2022-05-23] MEDS: IPRATROPIUM 0.5MG/ALBUTEROL 2.5MG INH SOL UD 3ML (DUONEB) INH SCH ×4 (07:23→19:12)
[2022-05-23 07:27] LABS: BLOOD UREA NITROGEN 15 MG/DL (7-18); CALCIUM LEVEL 9.4 MG/DL (8.8-10.2); CARBON DIOXIDE LEVEL 26 MEQ/L (21-32); CHLORIDE LEVEL 104 MEQ/L (98-107); CREATININE FOR GFR 0.74 MG/DL (0.55-1.30); GLOMERULAR FILTRATION RATE > 60.0 (>39); GLUCOSE, FASTING 190 MG/DL (70-100); POTASSIUM SERUM 3.6 MEQ/L (3.5-5.1); SODIUM LEVEL 138 MEQ/L (136-145)
[2022-05-23 07:59] LABS: ERYTHROCYTE SEDIMENTATION RATE 39 mm/hr (0-30)
[2022-05-23] MEDS: OMEPRAZOLE 20MG CAP PO SCH (08:23)
[2022-05-23] MEDS: LORATADINE 10 MG TAB PO SCH (08:23)
[2022-05-23] MEDS: predniSONE 10 MG TAB PO SCH (08:23)
[2022-05-23] MEDS: PREGABALIN 25 MG CAP (LYRICA) PO SCH ×2 (08:23→20:24)
[2022-05-23] MEDS: CLOPIDOGREL 75 MG TAB PO SCH (08:23)
[2022-05-23] MEDS: SODIUM CHLORIDE 0.9% NASAL GEL 15GM (AYR) SCH (08:24)
[2022-05-23] MEDS: APIXABAN 5 MG TAB (ELIQUIS) PO SCH ×2 (08:24→20:24)
[2022-05-23] MEDS: LACTOBACILLUS ACIDOPHILUS CAP (BACID) PO SCH (08:24)
[2022-05-23] MEDS: INSULIN LISPRO (NovoLOG) PER UNIT SC SCH ×4 (08:24→20:25)
[2022-05-23] MEDS: traMADol 50 MG TAB PO PRN (08:37)
[2022-05-23 14:00] VITALS: BP 129/62
[2022-05-23] MEDS: VANCOMYCIN HCL 1,000 MG, VIAL MATE ADAPTER 1 EACH in D5W 250 ML IV SCH (16:13)
[2022-05-23 20:00] VITALS: BP 120/90
[2022-05-23] MEDS: rOPINIRole 0.25 MG TAB(REQUIP) PO SCH (20:24)
[2022-05-23] MEDS: **NOTE PATIENT COMMENT** MISC XX SCH (20:25)
[2022-05-23] MEDS: ESTROGENS VAGINAL CREAM 30GM PV SCH (20:26)
[2022-05-24 06:00] VITALS: BP 134/82
[2022-05-24 06:50] LABS: BASO # 0.1 10^3/uL (0.0-0.2); BASO % 1.2 % (0.0-1.0); EOS # 0.5 10^3/uL (0.0-0.5); EOS % 5.1 % (0.0-3.0); HEMATOCRIT 39.1 % (36.0-47.0); HEMOGLOBIN 12.4 g/dl (12.0-15.5); LYMPH # 1.7 10^3/uL (1.5-5.0); MEAN CORPUSCULAR HEMOGLOBIN 28.4 pg (27.0-33.0); MEAN CORPUSCULAR HGB CONC 31.7 g/dl (32.0-36.5); MEAN CORPUSCULAR VOLUME 89.7 fl (80.0-96.0); MONO # 1.1 10^3/uL (0.0-0.8); MONO % 11.3 % (2.0-8.0); NEUTROPHILS # 6.4 10^3/uL (1.5-8.5); NEUTROPHILS % 64.6 % (36.0-66.0); PLATELET COUNT, AUTOMATED 411 10^3/uL (150-450); RED BLOOD COUNT 4.36 10^6/uL (4.00-5.40); WHITE BLOOD COUNT 9.9 10^3/uL (4.0-10.0)
[2022-05-24 07:03] LABS: BLOOD UREA NITROGEN 18 MG/DL (7-18); CARBON DIOXIDE LEVEL 26 MEQ/L (21-32); CHLORIDE LEVEL 104 MEQ/L (98-107); CREATININE FOR GFR 0.82 MG/DL (0.55-1.30); GLOMERULAR FILTRATION RATE > 60.0 (>39); GLUCOSE, FASTING 167 MG/DL (70-100); POTASSIUM SERUM 3.7 MEQ/L (3.5-5.1); SODIUM LEVEL 137 MEQ/L (136-145)
[2022-05-24] MEDS: IPRATROPIUM 0.5MG/ALBUTEROL 2.5MG INH SOL UD 3ML (DUONEB) INH SCH ×4 (07:25→19:07)
[2022-05-24] MEDS: LACTOBACILLUS ACIDOPHILUS CAP (BACID) PO SCH (09:47)
[2022-05-24] MEDS: APIXABAN 5 MG TAB (ELIQUIS) PO SCH ×2 (09:47→21:47)
[2022-05-24] MEDS: LORATADINE 10 MG TAB PO SCH (09:47)
[2022-05-24] MEDS: CLOPIDOGREL 75 MG TAB PO SCH (09:47)
[2022-05-24] MEDS: INSULIN LISPRO (NovoLOG) PER UNIT SC SCH ×4 (09:47→21:48)
[2022-05-24] MEDS: SODIUM CHLORIDE 0.9% NASAL GEL 15GM (AYR) SCH (09:48)
[2022-05-24] MEDS: predniSONE 10 MG TAB PO SCH (09:48)
[2022-05-24] MEDS: OMEPRAZOLE 20MG CAP PO SCH (09:48)
[2022-05-24] MEDS: PREGABALIN 25 MG CAP (LYRICA) PO SCH ×2 (09:48→21:54)
[2022-05-24] MEDS: VANCOMYCIN HCL 1,000 MG, VIAL MATE ADAPTER 1 EACH in D5W 250 ML IV SCH (10:53)
[2022-05-24] MEDS ORDERED: VANCOMYCIN HCL 1,000 MG, VIAL MATE ADAPTER 1 EACH in NS 250 ML IV SCH (12:46)
[2022-05-24 14:00] VITALS: BP 144/87
[2022-05-24] MEDS: traMADol 50 MG TAB PO PRN (17:42)
[2022-05-24 20:00] VITALS: BP 137/85
[2022-05-24] MEDS: **NOTE PATIENT COMMENT** MISC XX SCH (21:00)
[2022-05-24] MEDS: rOPINIRole 0.25 MG TAB(REQUIP) PO SCH (21:47)
[2022-05-24] MEDS: ESTROGENS VAGINAL CREAM 30GM PV SCH (21:49)
[2022-05-25] MEDS ORDERED: VANCOMYCIN HCL 1,000 MG, VIAL MATE ADAPTER 1 EACH in NS 250 ML IV SCH (04:00)
[2022-05-25 06:00] VITALS: BP 136/90
[2022-05-25 07:14] LABS: BASO # 0.1 10^3/uL (0.0-0.2); EOS # 0.5 10^3/uL (0.0-0.5); EOS % 4.9 % (0.0-3.0); HEMATOCRIT 35.7 % (36.0-47.0); HEMOGLOBIN 11.4 g/dl (12.0-15.5); LYMPH # 1.7 10^3/uL (1.5-5.0); LYMPH % 17.2 % (24.0-44.0); MEAN CORPUSCULAR HEMOGLOBIN 28.6 pg (27.0-33.0); MEAN CORPUSCULAR HGB CONC 31.9 g/dl (32.0-36.5); MEAN CORPUSCULAR VOLUME 89.5 fl (80.0-96.0); MONO # 1.3 10^3/uL (0.0-0.8); NEUTROPHILS # 6.2 10^3/uL (1.5-8.5); PLATELET COUNT, AUTOMATED 395 10^3/uL (150-450); RED BLOOD COUNT 3.99 10^6/uL (4.00-5.40); WHITE BLOOD COUNT 9.8 10^3/uL (4.0-10.0)
[2022-05-25] MEDS: IPRATROPIUM 0.5MG/ALBUTEROL 2.5MG INH SOL UD 3ML (DUONEB) INH SCH ×3 (07:20→15:22)
[2022-05-25 08:09] LABS: BLOOD UREA NITROGEN 17 MG/DL (7-18); CALCIUM LEVEL 9.2 MG/DL (8.8-10.2); CARBON DIOXIDE LEVEL 26 MEQ/L (21-32); CHLORIDE LEVEL 107 MEQ/L (98-107); GLOMERULAR FILTRATION RATE > 60.0 (>39); GLUCOSE, FASTING 220 MG/DL (70-100); POTASSIUM SERUM 3.3 MEQ/L (3.5-5.1); SODIUM LEVEL 139 MEQ/L (136-145)
[2022-05-25] MEDS: INSULIN LISPRO (NovoLOG) PER UNIT SC SCH ×2 (10:10→12:39)
[2022-05-25] MEDS: CLOPIDOGREL 75 MG TAB PO SCH (10:11)
[2022-05-25] MEDS: OMEPRAZOLE 20MG CAP PO SCH (10:11)
[2022-05-25] MEDS: APIXABAN 5 MG TAB (ELIQUIS) PO SCH (10:11)
[2022-05-25] MEDS: LACTOBACILLUS ACIDOPHILUS CAP (BACID) PO SCH (10:11)
[2022-05-25] MEDS: PREGABALIN 25 MG CAP (LYRICA) PO SCH (10:11)
[2022-05-25] MEDS: LORATADINE 10 MG TAB PO SCH (10:11)
[2022-05-25] MEDS: predniSONE 10 MG TAB PO SCH (10:11)
[2022-05-25] MEDS: SODIUM CHLORIDE 0.9% NASAL GEL 15GM (AYR) SCH (10:12)
[2022-05-25] MEDS ORDERED: POTASSIUM CHLORIDE 10MEQ SR TABLET PO ONE (12:00)
[2022-05-25 14:00] VITALS: BP 137/79
== END 2022-05-25 16:16 | disposition home or self-care (01) | DRG 863 ==
LOC: M ED 18:05 → M ED INP 23:55 → ENRESERV 05-20 00:44 → M MSPAV 05-20 02:11
PROVIDERS: ADMIT Family Medicine; ATTEND Internal Medicine
DX: T81.40XA Infection following a procedure, unspecified, initial encounter (principal); L03.115 Cellulitis of right lower limb; J96.11 Chronic respiratory failure with hypoxia; Z66 Do not resuscitate; B95.61 Methicillin susceptible Staphylococcus aureus infection as the cause of diseases classified elsewhere; Z89.411 Acquired absence of right great toe; E11.42 Type 2 diabetes mellitus with diabetic polyneuropathy; E11.51 Type 2 diabetes mellitus with diabetic peripheral angiopathy without gangrene; I73.9 Peripheral vascular disease, unspecified; I10 Essential (primary) hypertension; J98.4 Other disorders of lung; G25.81 Restless legs syndrome; K21.9 Gastro-esophageal reflux disease without esophagitis; Z95.828 Presence of other vascular implants and grafts; Z79.01 Long term (current) use of anticoagulants; Z79.4 Long term (current) use of insulin; Z79.899 Other long term (current) drug therapy; Z88.0 Allergy status to penicillin; Z88.1 Allergy status to other antibiotic agents; E78.5 Hyperlipidemia, unspecified; Z79.52 Long term (current) use of systemic steroids; E55.9 Vitamin D deficiency, unspecified; G47.00 Insomnia, unspecified; Z99.81 Dependence on supplemental oxygen; T87.81 Dehiscence of amputation stump

== ENCOUNTER 2022-05-26 14:51 | Outpatient (CLI) | payer MEDICARE ==
[~2022-05-26] VITALS: Ht 160 cm; Wt 63.6 kg
[~2022-05-26 14:51] MED LIST changes: +DOXY-350 PO; +SODIGEL TOP
[2022-05-26] MEDS ORDERED: DALBAVANCIN 1,500 MG in D5W 250 ML IV ONE (15:30)
[2022-05-26 15:39] VITALS: BP 132/75
[2022-05-26 16:25] VITALS: BP 125/64
== END 2022-05-26 16:30 | disposition home or self-care (01) ==
LOC: M INFU 14:51
PROVIDERS: ATTEND Internal Medicine Infectious Disease
DX: M86.171 Other acute osteomyelitis, right ankle and foot (principal); B95.61 Methicillin susceptible Staphylococcus aureus infection as the cause of diseases classified elsewhere; Z88.0 Allergy status to penicillin; Z88.1 Allergy status to other antibiotic agents; Z88.8 Allergy status to other drugs, medicaments and biological substances
CPT/HCPCS: 96365; J0875

== ENCOUNTER → 2022-06-16 | Outpatient (REF) | payer MEDICARE | LOC: M LAB REF 14:33 | PROVIDERS: ATTEND Podiatrist | DX: M79.671 Pain in right foot (principal) ==

== ENCOUNTER 2022-07-13 15:00 | Day surgery (SDC) | payer MEDICARE ==
[~2022-07-13] VITALS: Ht 162.6 cm; Wt 62.1 kg
[~2022-07-13 15:00] MED LIST changes: -DOXY-350 PO; +DOXY-444 PO
[2022-07-13] MEDS ORDERED: BUPIVACAINE HCL 0.5% 30ML VIAL As Ordered ONE (15:52)
[2022-07-13] MEDS ORDERED: LIDOCAINE 2% MDV 20ML VIAL As Ordered ONE (15:52)
[2022-07-13 15:57] LABS: HEMATOCRIT 42.8 % (36.0-47.0); HEMOGLOBIN 13.3 g/dl (12.0-15.5); MEAN CORPUSCULAR HEMOGLOBIN 26.8 pg (27.0-33.0); MEAN CORPUSCULAR HGB CONC 31.1 g/dl (32.0-36.5); MEAN CORPUSCULAR VOLUME 86.3 fl (80.0-96.0); PLATELET COUNT, AUTOMATED 456 10^3/uL (150-450); RED BLOOD COUNT 4.96 10^6/uL (4.00-5.40); WHITE BLOOD COUNT 10.1 10^3/uL (4.0-10.0)
[2022-07-13] MEDS ORDERED: VANCOMYCIN HCL 1,000 MG, VIAL MATE ADAPTER 1 EACH in D5W 250 ML IV ONE (16:00)
[2022-07-13 16:02] LABS: CALCIUM LEVEL 9.9 MG/DL (8.8-10.2); CREATININE FOR GFR 1.1 MG/DL (0.55-1.30); POTASSIUM SERUM 4.1 MEQ/L (3.5-5.1)
[2022-07-13] MEDS ORDERED: INSULIN LISPRO (NovoLOG) PER UNIT SC PRN (16:05)
[2022-07-13] MEDS ORDERED: LR 1,000 ML IV SCH (16:05)
[2022-07-13] MEDS ORDERED: propofoL 200 MG/20 ML VIAL As Ordered ONE (16:13)
[2022-07-13] MEDS ORDERED: LIDOCAINE 2% 100MG/5ML SDV (FOR ANES.) As Ordered ONE (16:13)
[2022-07-13] MEDS ORDERED: VANCOMYCIN 500MG/10ML VIAL As Ordered ONE (16:43)
[2022-07-13] MEDS ORDERED: GENTAMICIN SULF 80MG/2ML VIAL As Ordered ONE (17:01)
[2022-07-13] MEDS ORDERED: fentaNYL 100 MCG/2 ML INJECTION As Ordered ONE (17:07)
[2022-07-13 18:28] VITALS: BP 138/66
== END 2022-07-13 18:36 | disposition home or self-care (01) ==
LOC: M SDC 15:00
PROVIDERS: ATTEND Podiatrist
DX: M86.171 Other acute osteomyelitis, right ankle and foot (principal); M87.377 Other secondary osteonecrosis, right toe(s)
CPT/HCPCS: 28122; 28825; 36415; 73630; 80048; 85027; 87070; 87075; 87205; 87635; 88304; 88305; 88311; J1580; J1815; J3010; J3370

== ENCOUNTER → 2022-07-25 | Outpatient (REF) | payer MEDICARE ==
[2022-07-25 18:45] LABS: APPEARANCE, URINE MANUAL CLOUDY (CLEAR); COLOR, URINE MANUAL LT YELLOW (YELLOW); GLUCOSE, URINE (UA) MANUAL NEGATIVE (NEGATIVE); KETONE, URINE MANUAL NEGATIVE (NEGATIVE); PROTEIN, URINE MANUAL TRACE mg/dL (NEGATIVE); SPECIFIC GRAVITY,URINE MANUAL 1.015 (1.002-1.035); UROBILINOGEN, URINE MANUAL NORMAL (NORMAL)
[2022-07-25 18:46] LABS: BILIRUBIN, URINE MANUAL NEGATIVE (NEGATIVE); BLOOD URINE MANUAL TRACE (NEGATIVE); LEUKOCYTE ESTERASE, URINE MAN POSITIVE (NEGATIVE); NITRITE, URINE MANUAL POSITIVE (NEGATIVE)
[2022-07-25 19:31] LABS: WBC, URINE 30-40 /hpf (0-3)
[2022-07-25 19:32] LABS: BACTERIA, URINE LARGE AMOUNT; HYALINE CAST, URINE NONE SEEN /lpf (0-1); RBC, URINE 0-1 /hpf (0-3); SQUAMOUS EPITHELIAL CELL URINE LARGE AMOUNT /hpf (SMALL AMT)
== END ==
LOC: EEVIPCON 17:03 → M SHH 17:03
PROVIDERS: ATTEND General Practice
DX: R30.0 Dysuria (principal)

== ENCOUNTER 2022-08-03 18:11 | Inpatient (IN) | payer MEDICARE ==
[~2022-08-03] VITALS: Ht 165.1 cm; Wt 62.5 kg
[~2022-08-03 18:11] MED LIST changes: -ALBU8.5H; -ALBU8.5H INH; -BACI1CAP PO; -CETI-24 PO; -ERTA1INJ2; -OMEP-173 PO
[2022-08-03] MEDS ORDERED: ALBU8.5H (18:30)
[2022-08-03] MEDS ORDERED: CETI-24 PO (18:30)
[2022-08-03] MEDS ORDERED: ERTA1INJ2 (18:30)
[2022-08-03] MEDS ORDERED: SODIUM CHLORIDE 0.9% INJ 10 ML SYR IV PRN (19:50)
[2022-08-03 20:18] LABS: BASO # 0.1 10^3/uL (0.0-0.2); BASO % 0.7 % (0.0-1.0); EOS % 0.2 % (0.0-3.0); HEMATOCRIT 38.9 % (36.0-47.0); HEMOGLOBIN 12.4 g/dl (12.0-15.5); LYMPH # 1.4 10^3/uL (1.5-5.0); LYMPH % 9.6 % (24.0-44.0); MEAN CORPUSCULAR HEMOGLOBIN 26.9 pg (27.0-33.0); MEAN CORPUSCULAR HGB CONC 31.9 g/dl (32.0-36.5); MEAN CORPUSCULAR VOLUME 84.4 fl (80.0-96.0); MONO # 0.8 10^3/uL (0.0-0.8); MONO % 5.6 % (2.0-8.0); NEUTROPHILS # 12.2 10^3/uL (1.5-8.5); NEUTROPHILS % 83.3 % (36.0-66.0); PLATELET COUNT, AUTOMATED 415 10^3/uL (150-450); RED BLOOD COUNT 4.61 10^6/uL (4.00-5.40); WHITE BLOOD COUNT 14.7 10^3/uL (4.0-10.0)
[2022-08-03] MEDS ORDERED: NS 500 ML IV ONE (20:20)
[2022-08-03 20:41] LABS: LIPASE 39 U/L (12-53)
[2022-08-03 20:44] LABS: ALBUMIN 3.2 G/DL (3.2-5.2); ALKALINE PHOSPHATASE 77 U/L (46-116); ALT/SGPT 14 U/L (7.0-40); AST/SGOT 15 U/L (<34); BILIRUBIN,TOTAL 0.2 MG/DL (0.3-1.2); BLOOD UREA NITROGEN 22 MG/DL (9-23); CALCIUM LEVEL 9.3 MG/DL (8.3-10.6); CARBON DIOXIDE LEVEL 26 MMOL/L (20-31); CHLORIDE LEVEL 102 MMOL/L (98-107); CK-MB VALUE MASS 2.7 NG/ML (<3.6); CPK CREATINE PHOSPHOKINASE 61 U/L (34-145); CREATININE FOR GFR 0.73 MG/DL (0.55-1.30); GLOMERULAR FILTRATION RATE > 60.0 (>39); GLUCOSE, FASTING 197 MG/DL (74-106); MB/CK RELATIVE INDEX 4.42 (< OR =4); POTASSIUM SERUM 4.3 MMOL/L (3.5-5.1); SODIUM LEVEL 138 MMOL/L (136-145); TOTAL PROTEIN 6.3 G/DL (5.7-8.2)
[2022-08-03 23:02] LABS: BASO # 0.1 10^3/uL (0.0-0.2); BASO % 0.7 % (0.0-1.0); EOS # 0.1 10^3/uL (0.0-0.5); EOS % 0.4 % (0.0-3.0); HEMATOCRIT 41.3 % (36.0-47.0); HEMOGLOBIN 13.1 g/dl (12.0-15.5); LYMPH # 1.9 10^3/uL (1.5-5.0); LYMPH % 12.7 % (24.0-44.0); MEAN CORPUSCULAR HEMOGLOBIN 26.9 pg (27.0-33.0); MEAN CORPUSCULAR HGB CONC 31.7 g/dl (32.0-36.5); MEAN CORPUSCULAR VOLUME 84.8 fl (80.0-96.0); MONO # 1.2 10^3/uL (0.0-0.8); MONO % 7.8 % (2.0-8.0); NEUTROPHILS # 11.4 10^3/uL (1.5-8.5); NEUTROPHILS % 77.7 % (36.0-66.0); PLATELET COUNT, AUTOMATED 361 10^3/uL (150-450); RED BLOOD COUNT 4.87 10^6/uL (4.00-5.40); WHITE BLOOD COUNT 14.7 10^3/uL (4.0-10.0)
[2022-08-04 00:11] LABS: CK-MB VALUE MASS 2.2 NG/ML (<3.6)
[2022-08-04 00:12] LABS: MB/CK RELATIVE INDEX 3.72 (< OR =4)
[2022-08-04] MEDS ORDERED: DEXTROSE 50% 50 ML SYRINGE IV PRN (01:30)
[2022-08-04] MEDS ORDERED: ACETAMINOPHEN TAB 650MG DOSE (2X325MG) PO PRN (01:30)
[2022-08-04] MEDS ORDERED: GLUCAGON INJ 1MG VIAL SC PRN (01:30)
[2022-08-04] MEDS ORDERED: GLUCOSE 4GM CHEW TABLET PO PRN (01:30)
[2022-08-04] MEDS ORDERED: ALBUTEROL 90 MCG/ACT 8GM HFA INHALER INH PRN (01:40)
[2022-08-04] MEDS ORDERED: OMEP-173 PO (01:59)
[2022-08-04] MEDS ORDERED: CETI-24 PO (01:59)
[2022-08-04] MEDS ORDERED: ALBU8.5H INH (01:59)
[2022-08-04] MEDS ORDERED: BACI1CAP PO (01:59)
[2022-08-04] MEDS ORDERED: HUMA50IN4 SC ×2 (01:59)
[2022-08-04] MEDS ORDERED: HOME MED LIST COMPLETE! XX SCH (02:05)
[2022-08-04 07:22] LABS: BASO # 0.1 10^3/uL (0.0-0.2); BASO % 1.1 % (0.0-1.0); EOS # 0.2 10^3/uL (0.0-0.5); EOS % 2.1 % (0.0-3.0); HEMATOCRIT 40.8 % (36.0-47.0); LYMPH # 2.3 10^3/uL (1.5-5.0); LYMPH % 21.2 % (24.0-44.0); MEAN CORPUSCULAR HEMOGLOBIN 26.9 pg (27.0-33.0); MEAN CORPUSCULAR HGB CONC 31.9 g/dl (32.0-36.5); MEAN CORPUSCULAR VOLUME 84.5 fl (80.0-96.0); MONO # 1.2 10^3/uL (0.0-0.8); MONO % 10.7 % (2.0-8.0); NEUTROPHILS # 6.9 10^3/uL (1.5-8.5); NEUTROPHILS % 64.2 % (36.0-66.0); PLATELET COUNT, AUTOMATED 404 10^3/uL (150-450); RED BLOOD COUNT 4.83 10^6/uL (4.00-5.40); WHITE BLOOD COUNT 10.7 10^3/uL (4.0-10.0)
[2022-08-04 08:00] VITALS: BP 135/67
[2022-08-04] MEDS: IPRATROPIUM 0.5MG/ALBUTEROL 2.5MG INH SOL UD 3ML (DUONEB) INH SCH ×4 (08:00→19:34)
[2022-08-04 08:01] LABS: ERYTHROCYTE SEDIMENTATION RATE 45 mm/hr (0-30)
[2022-08-04] MEDS: PANTOPRAZOLE 20 MG TAB PO SCH (09:59)
[2022-08-04] MEDS: APIXABAN 5 MG TAB (ELIQUIS) PO SCH ×2 (09:59→21:48)
[2022-08-04] MEDS: predniSONE 10 MG TAB PO SCH (09:59)
[2022-08-04] MEDS: INSULIN LISPRO (NovoLOG) PER UNIT SC SCH ×4 (09:59→21:47)
[2022-08-04] MEDS: CETIRIZINE (ZyrTEC) 10 MG TAB PO SCH (09:59)
[2022-08-04] MEDS: PREGABALIN 25 MG CAP (LYRICA) PO SCH ×3 (09:59→21:52)
[2022-08-04] MEDS: CLOPIDOGREL 75 MG TAB PO SCH (09:59)
[2022-08-04] MEDS: lisinopriL 5 MG TAB PO SCH (10:01)
[2022-08-04 12:46] LABS: BLOOD UREA NITROGEN 20 MG/DL (9-23); CALCIUM LEVEL 9.4 MG/DL (8.3-10.6); CARBON DIOXIDE LEVEL 25 MMOL/L (20-31); CHLORIDE LEVEL 104 MMOL/L (98-107); CREATININE FOR GFR 0.74 MG/DL (0.55-1.30); GLOMERULAR FILTRATION RATE > 60.0 (>39); GLUCOSE, FASTING 92 MG/DL (74-106); POTASSIUM SERUM 3.9 MMOL/L (3.5-5.1); SODIUM LEVEL 142 MMOL/L (136-145)
[2022-08-04 14:00] VITALS: BP 120/62
[2022-08-04 15:00] VITALS: BP 104/55
[2022-08-04] MEDS: rOPINIRole 1MG TAB PO SCH ×2 (16:08→21:48)
[2022-08-04] MEDS: LEVEMIR (INSULIN DETEMIR) 1 UNITS/0.01ML SC SCH (21:47)
[2022-08-04 21:50] VITALS: BP 115/52
[2022-08-05 05:00] VITALS: BP 92/50
[2022-08-05 05:04] LABS: BASO # 0.1 10^3/uL (0.0-0.2); BASO % 1.1 % (0.0-1.0); EOS # 0.1 10^3/uL (0.0-0.5); EOS % 1.5 % (0.0-3.0); HEMATOCRIT 39.9 % (36.0-47.0); HEMOGLOBIN 12.4 g/dl (12.0-15.5); LYMPH # 2.2 10^3/uL (1.5-5.0); LYMPH % 23.3 % (24.0-44.0); MEAN CORPUSCULAR HEMOGLOBIN 26.5 pg (27.0-33.0); MEAN CORPUSCULAR HGB CONC 31.1 g/dl (32.0-36.5); MEAN CORPUSCULAR VOLUME 85.3 fl (80.0-96.0); MONO # 1.2 10^3/uL (0.0-0.8); MONO % 12.5 % (2.0-8.0); NEUTROPHILS # 5.9 10^3/uL (1.5-8.5); NEUTROPHILS % 60.8 % (36.0-66.0); PLATELET COUNT, AUTOMATED 422 10^3/uL (150-450); RED BLOOD COUNT 4.68 10^6/uL (4.00-5.40); WHITE BLOOD COUNT 9.6 10^3/uL (4.0-10.0)
[2022-08-05 06:03] LABS: BLOOD UREA NITROGEN 25 MG/DL (9-23); CALCIUM LEVEL 9.4 MG/DL (8.3-10.6); CARBON DIOXIDE LEVEL 26 MMOL/L (20-31); CHLORIDE LEVEL 106 MMOL/L (98-107); CREATININE FOR GFR 0.93 MG/DL (0.55-1.30); GLOMERULAR FILTRATION RATE > 60.0 (>39); GLUCOSE, FASTING 122 MG/DL (74-106); POTASSIUM SERUM 3.8 MMOL/L (3.5-5.1); SODIUM LEVEL 143 MMOL/L (136-145)
[2022-08-05] MEDS: IPRATROPIUM 0.5MG/ALBUTEROL 2.5MG INH SOL UD 3ML (DUONEB) INH SCH ×4 (07:37→20:54)
[2022-08-05 07:59] LABS: APPEARANCE, URINE MANUAL HAZY (CLEAR); COLOR, URINE MANUAL YELLOW (YELLOW)
[2022-08-05 08:00] VITALS: BP 100/54
[2022-08-05 08:02] LABS: GLUCOSE, URINE (UA) MANUAL NEGATIVE (NEGATIVE); PROTEIN, URINE MANUAL TRACE mg/dL (NEGATIVE); SPECIFIC GRAVITY,URINE MANUAL 1.021 (1.002-1.035)
[2022-08-05 08:03] LABS: BILIRUBIN, URINE MANUAL NEGATIVE (NEGATIVE); BLOOD URINE MANUAL TRACE (NEGATIVE); KETONE, URINE MANUAL 1+ mg/dL (NEGATIVE); LEUKOCYTE ESTERASE, URINE MAN NEGATIVE (NEGATIVE); NITRITE, URINE MANUAL NEGATIVE (NEGATIVE); UROBILINOGEN, URINE MANUAL NORMAL (NORMAL)
[2022-08-05] MEDS: PREGABALIN 25 MG CAP (LYRICA) PO SCH ×3 (08:37→21:02)
[2022-08-05] MEDS: CETIRIZINE (ZyrTEC) 10 MG TAB PO SCH (08:38)
[2022-08-05] MEDS: predniSONE 10 MG TAB PO SCH (08:38)
[2022-08-05] MEDS: PANTOPRAZOLE 20 MG TAB PO SCH (08:38)
[2022-08-05] MEDS: INSULIN LISPRO (NovoLOG) PER UNIT SC SCH ×4 (08:38→20:58)
[2022-08-05] MEDS: CLOPIDOGREL 75 MG TAB PO SCH (08:38)
[2022-08-05] MEDS: lisinopriL 5 MG TAB PO SCH (08:38)
[2022-08-05] MEDS: APIXABAN 5 MG TAB (ELIQUIS) PO SCH ×2 (08:38→20:58)
[2022-08-05 08:44] LABS: BACTERIA, URINE SMALL AMOUNT; MUCUS, URINE SMALL AMOUNT (NEGATIVE); SQUAMOUS EPITHELIAL CELL URINE LARGE AMOUNT /hpf (SMALL AMT)
[2022-08-05 16:00] VITALS: BP 97/55
[2022-08-05 20:00] VITALS: BP 120/66
[2022-08-05] MEDS: LEVEMIR (INSULIN DETEMIR) 1 UNITS/0.01ML SC SCH (20:57)
[2022-08-05] MEDS: rOPINIRole 1MG TAB PO SCH (20:58)
[2022-08-06 04:00] VITALS: BP 126/66
[2022-08-06 06:01] LABS: BASO # 0.1 10^3/uL (0.0-0.2); BASO % 1.3 % (0.0-1.0); EOS # 0.2 10^3/uL (0.0-0.5); EOS % 1.7 % (0.0-3.0); HEMATOCRIT 38.1 % (36.0-47.0); HEMOGLOBIN 12.1 g/dl (12.0-15.5); LYMPH # 2.1 10^3/uL (1.5-5.0); LYMPH % 21.9 % (24.0-44.0); MEAN CORPUSCULAR HEMOGLOBIN 26.8 pg (27.0-33.0); MEAN CORPUSCULAR HGB CONC 31.8 g/dl (32.0-36.5); MEAN CORPUSCULAR VOLUME 84.3 fl (80.0-96.0); MONO # 1.3 10^3/uL (0.0-0.8); MONO % 14.1 % (2.0-8.0); NEUTROPHILS # 5.7 10^3/uL (1.5-8.5); NEUTROPHILS % 60.1 % (36.0-66.0); PLATELET COUNT, AUTOMATED 381 10^3/uL (150-450); RED BLOOD COUNT 4.52 10^6/uL (4.00-5.40); WHITE BLOOD COUNT 9.4 10^3/uL (4.0-10.0)
[2022-08-06 06:26] LABS: BLOOD UREA NITROGEN 18 MG/DL (9-23); CALCIUM LEVEL 9.1 MG/DL (8.3-10.6); CARBON DIOXIDE LEVEL 24 MMOL/L (20-31); CHLORIDE LEVEL 106 MMOL/L (98-107); CREATININE FOR GFR 0.84 MG/DL (0.55-1.30); GLOMERULAR FILTRATION RATE > 60.0 (>39); GLUCOSE, FASTING 146 MG/DL (74-106); POTASSIUM SERUM 3.4 MMOL/L (3.5-5.1); SODIUM LEVEL 142 MMOL/L (136-145)
[2022-08-06] MEDS: IPRATROPIUM 0.5MG/ALBUTEROL 2.5MG INH SOL UD 3ML (DUONEB) INH SCH (07:35)
[2022-08-06 08:00] VITALS: BP 120/56
[2022-08-06] MEDS: INSULIN LISPRO (NovoLOG) PER UNIT SC SCH (08:30)
[2022-08-06] MEDS: predniSONE 10 MG TAB PO SCH (08:30)
[2022-08-06] MEDS: CLOPIDOGREL 75 MG TAB PO SCH (08:30)
[2022-08-06] MEDS: APIXABAN 5 MG TAB (ELIQUIS) PO SCH (08:30)
[2022-08-06] MEDS: CETIRIZINE (ZyrTEC) 10 MG TAB PO SCH (08:30)
[2022-08-06 08:31] VITALS: BP 120/56
[2022-08-06] MEDS: PANTOPRAZOLE 20 MG TAB PO SCH (08:31)
[2022-08-06] MEDS: lisinopriL 5 MG TAB PO SCH (08:31)
[2022-08-06] MEDS: PREGABALIN 25 MG CAP (LYRICA) PO SCH (08:31)
[2022-08-06] MEDS ORDERED: POTASSIUM CHLORIDE 10MEQ SR TABLET PO ONE (08:35)
== END 2022-08-06 10:09 | disposition home health service (06) | DRG 884 ==
LOC: M ED 18:11 → M ED INP 08-04 01:31 → ENRESERV 08-04 12:55 → M PCU 08-04 14:48
PROVIDERS: ADMIT Family Medicine; ATTEND Internal Medicine
DX: R54 Age-related physical debility (principal); G72.0 Drug-induced myopathy; R19.7 Diarrhea, unspecified; E11.42 Type 2 diabetes mellitus with diabetic polyneuropathy; E11.51 Type 2 diabetes mellitus with diabetic peripheral angiopathy without gangrene; I10 Essential (primary) hypertension; K21.9 Gastro-esophageal reflux disease without esophagitis; G25.81 Restless legs syndrome; J67.0 Farmer's lung; T38.0X5A Adverse effect of glucocorticoids and synthetic analogues, initial encounter; D72.829 Elevated white blood cell count, unspecified; Z66 Do not resuscitate; Z87.440 Personal history of urinary (tract) infections; Z86.711 Personal history of pulmonary embolism; Z95.820 Peripheral vascular angioplasty status with implants and grafts; Z89.421 Acquired absence of other right toe(s); Z98.41 Cataract extraction status, right eye; Z98.42 Cataract extraction status, left eye; Z79.01 Long term (current) use of anticoagulants; Z79.4 Long term (current) use of insulin; Z79.52 Long term (current) use of systemic steroids; Z79.899 Other long term (current) drug therapy; Z79.02 Long term (current) use of antithrombotics/antiplatelets; Z88.0 Allergy status to penicillin; Z88.1 Allergy status to other antibiotic agents

== ENCOUNTER → 2022-08-03 | Outpatient (REF) | payer MEDICARE ==
[~2022-08-03] MED LIST changes: +ALBU8.5H; +ALBU8.5H INH; +BACI1CAP PO; +CETI-24 PO; +ERTA1INJ2; +HUMA50IN4 SC; -HUMA50IN4 SQ; +OMEP-173 PO; +SODIGEL; -SODIGEL TOP; +TOUJ1.2I SC; -TOUJ1.2I SQ
[2022-08-03 17:21] LABS: APPEARANCE, URINE MANUAL HAZY (CLEAR); COLOR, URINE MANUAL LT YELLOW (YELLOW)
[2022-08-03 17:22] LABS: BILIRUBIN, URINE MANUAL NEGATIVE (NEGATIVE); BLOOD URINE MANUAL NEGATIVE (NEGATIVE); GLUCOSE, URINE (UA) MANUAL NEGATIVE (NEGATIVE); KETONE, URINE MANUAL NEGATIVE (NEGATIVE); LEUKOCYTE ESTERASE, URINE MAN NEGATIVE (NEGATIVE); NITRITE, URINE MANUAL NEGATIVE (NEGATIVE); PROTEIN, URINE MANUAL TRACE mg/dL (NEGATIVE); UROBILINOGEN, URINE MANUAL NORMAL (NORMAL)
[2022-08-03 18:03] LABS: BACTERIA, URINE NONE SEEN; HYALINE CAST, URINE NONE SEEN /lpf (0-1); RBC, URINE NONE SEEN /hpf (0-3); WBC, URINE 0-1 /hpf (0-3)
[2022-08-03 18:10] LABS: SQUAMOUS EPITHELIAL CELL URINE LARGE AMOUNT /hpf (SMALL AMT)
== END ==
LOC: M LAB REF 15:52 → M SHH 15:52
PROVIDERS: ATTEND Family Medicine
DX: R30.0 Dysuria (principal); R39.0 Extravasation of urine

== ENCOUNTER → 2023-01-20 | Outpatient (CLI) | payer MEDICARE, MEDICAID ==
[~2023-01-20] MED LIST changes: +ALBU8.5H; +ALBU8.5H INH; +BACI1CAP PO; +CETI-24 PO; +ERTA1INJ2; +OMEP-173 PO
== END ==
LOC: M RAD 12:48
PROVIDERS: ATTEND Surgery Vascular Surgery
DX: I70.90 Unspecified atherosclerosis (principal)

== ENCOUNTER 2023-06-09 06:13 | Day surgery (SDC) | payer MEDICARE, MEDICAID ==
[~2023-06-09] VITALS: Ht 162.6 cm; Wt 59.6 kg
[~2023-06-09 06:13] MED LIST changes: +ACET650T61 PO; +BUDE0.254 INH; +CULTCAP2 PO; +ESTR62CR; +FOSF3PAC2 PO; +INSUHUMDS SC; -PREG25CA2 PO; +PREG25CA3 PO; -ROPI0.5T3 PO; +ROPI0.5T33 PO; +VANCOMYCIN HCL 1,000 MG, VIAL MATE ADAPTER 1 EACH in D5W 250 ML IV ONE
[2023-06-09] MEDS ORDERED: LR 1,000 ML IV SCH (06:20)
[2023-06-09] MEDS ORDERED: ONDANSETRON 4MG 2ML VIAL As Ordered ONE (06:56)
[2023-06-09] MEDS ORDERED: propofoL 200 MG/20 ML VIAL As Ordered ONE (06:56)
[2023-06-09] MEDS ORDERED: KETOROLAC 60MG 2ML VIAL As Ordered ONE (06:56)
[2023-06-09] MEDS ORDERED: LIDOCAINE 2% 100MG/5ML SDV (FOR ANES.) As Ordered ONE (06:56)
[2023-06-09] MEDS ORDERED: fentaNYL 100 MCG/2 ML INJECTION As Ordered ONE (07:04)
[2023-06-09] MEDS ORDERED: GENTAMICIN SULF 80MG/2ML VIAL As Ordered ONE (07:15)
[2023-06-09] MEDS ORDERED: LIDOCAINE 2% MDV 20ML VIAL As Ordered ONE (07:15)
[2023-06-09 08:45] VITALS: BP 148/78; TEMP 97.4; O2SAT 99
== END 2023-06-09 08:55 | disposition home or self-care (01) ==
LOC: M SDC 06:13
PROVIDERS: ATTEND Podiatrist
DX: M86.171 Other acute osteomyelitis, right ankle and foot (principal); G47.30 Sleep apnea, unspecified; E11.9 Type 2 diabetes mellitus without complications; Z88.1 Allergy status to other antibiotic agents; Z88.0 Allergy status to penicillin; Z79.899 Other long term (current) drug therapy; Z79.02 Long term (current) use of antithrombotics/antiplatelets
CPT/HCPCS: 28820; 73630; 87070; 87075; 87077; 87186; 87205; 88305; 93005; J0665; J1580; J1885; J2405; J3010; J3370

== ENCOUNTER → 2025-04-20 | Outpatient (REF) | payer MEDICARE, MEDICAID ==
[~2025-04-20] MED LIST changes: +ACET-1515 PO; -ACET650T15 PO; +DOXY-440 PO; -DOXY-444 PO; -LEVA0.6322; +LEVA0.6330; +OMEG-28 PO; -OMEG1CAP85 PO; -VANCOMYCIN HCL 1,000 MG, VIAL MATE ADAPTER 1 EACH in D5W 250 ML IV ONE
[2025-04-20 18:06] LABS: AMORPHOUS SEDIMENT SMALL (NEGATIVE); APPEARANCE, URINE CLOUDY (CLEAR); BACTERIA, URINE AUTO 2+ (NEGATIVE); BILIRUBIN, URINE AUTO NEGATIVE (NEGATIVE); BLOOD, URINE BLOOD NEGATIVE (NEGATIVE); GLUCOSE, URINE (UA) AUTO NEGATIVE (NEGATIVE); KETONE, URINE AUTO NEGATIVE (NEGATIVE); LEUKOCYTE ESTERASE, URINE AUTO NEGATIVE (NEGATIVE); MUCUS, URINE SMALL (NEGATIVE); NITRITE, URINE AUTO NEGATIVE (NEGATIVE); PROTEIN, URINE AUTO 1+ mg/dL (NEGATIVE); RBC, URINE AUTO 3 /HPF (0-3); SPECIFIC GRAVITY URINE AUTO 1.010 (1.002-1.035); SQUAMOUS EPITHELIAL CELL UR AU 10 /HPF (0-6); UROBILINOGEN, URINE AUTO 0.2 mg/dL (0.0-2.0); WBC, URINE AUTO 5 /HPF (0-3)
== END ==
LOC: M LAB REF 17:45
PROVIDERS: ATTEND Physician Assistant Medical
DX: N39.0 Urinary tract infection, site not specified (principal)